=== PATIENT | female | born 1970 | race Caucasian/White ===

== ENCOUNTER → 2017-06-20 14:47 | Outpatient (CLI) | payer SELFPAY ==
--- NOTE | 2017-06-20 14:49 | CT_ITS ---
STUDY: CT ABDOMEN WITH CONTRAST REASON FOR EXAM: Female, 46 years old. Abdominal pain RADIATION DOSAGE (If Supplied By Facility): CTDIvol = ( 19.76 ) mGy, DLP = ( 953.57 ) mGycm TECHNIQUE: Transaxial images were obtained post I.V. administration of 100mL ml of Isovue 300 contrast, and with oral contrast. Sagittal and coronal images were reconstructed. Individualized dose optimization techniques were used for this CT. COMPARISON: None. FINDINGS: The visualized lung bases are unremarkable. The visualized portions of the heart are within normal limits. There is a subcentimeter hypodensity in the right lower the liver which is too small to characterize. The liver is otherwise within normal limits. The spleen, pancreas and adrenal glands are within normal limits. There is a 5 mm nonobstructing stone in the collecting system of the right kidney and a 6 mm nonobstructing stone in the collecting system of the left kidney. There is no hydronephrosis. The visualized bowel demonstrates no evidence of obstruction. There is no abdominal free air, free fluid or lymphadenopathy. The aorta is normal in caliber. There are no destructive osseous lesions. CT/Abdomen WITH IV Contrast IMPRESSION: Bilateral subcentimeter nonobstructing renal collecting system stones. No hydronephrosis. The visualized bowel is within normal limits. No abdominal lymphadenopathy. Electronically Signed: Soham Ba, at 7:09 EDT Tel , Service support ,
== END ==
PROVIDERS: Family Provider Internal Medicine; PCP Internal Medicine; Visit Provider Internal Medicine
DX: R93.5 Abnormal findings on diagnostic imaging of other abdominal regions, including retroperitoneum (principal)
CPT/HCPCS: 74160; Q9967

== ENCOUNTER → 2017-07-21 06:44 | Outpatient (CLI) | payer BC, SELFPAY ==
--- NOTE | 2017-07-21 06:55 | CT_ITS ---
STUDY: CT BRAIN WITH AND WITHOUT CONTRAST REASON FOR EXAM: Female, 46 years old. Hyperprolactinemia RADIATION DOSAGE (If Supplied By Facility): CTDIvol = ( 44.99 ) mGy, DLP = ( 1547.23 ) mGycm TECHNIQUE: Transaxial CT imaging of the brain was performed pre and post contrast administration. The examination was performed with intravenous administration of 50cc ml of Isovue 370 contrast material. Individualized dose optimization techniques were used for this CT. COMPARISON: None. FINDINGS: Normal soft tissue structures. Normal calvarium. Normal size ventricles and extra-axial spaces for the patient's age. Normal white matter tracts of the cerebral hemispheres. Normal basal ganglia and thalami. Normal brainstem. Normal cerebellum. There is sellar enlargement at 1.23 x 0.7 cm with enhancement. This is suggestive of pituitary enlargement and a functioning pituitary adenoma would be consistent with patient's symptoms. An MRI is recommended for more accurate evaluation of the pituitary and of the enhancement pattern. There is no suspicious peripheral enhancing lesion. There is no intracranial hemorrhage. There are no findings of an acute ischemic infarction. Normal visualized paranasal sinuses. CT/Brain/Head W/WO Contrast IMPRESSION: There is CT evidence of enlarged sella region with enhancement which suggests pituitary enlargement and a possible functioning pituitary adenoma. Recommend further evaluation with MRI No acute hemorrhage midline shift or mass effect No suspicious enhancing lesion Electronically Signed: Theodore Robbins MD at 7:51 EDT , Service support ,
== END ==
PROVIDERS: Family Provider Internal Medicine; PCP Internal Medicine; Visit Provider Internal Medicine
DX: E22.1 Hyperprolactinemia (principal)
CPT/HCPCS: 70470

== ENCOUNTER → 2017-08-02 07:56 | Outpatient (CLI) | payer BC, SELFPAY ==
--- NOTE | 2017-08-02 08:30 | MRI_ITS ---
STUDY: MRI BRAIN WITH AND WITHOUT CONTRAST REASON FOR EXAM: Female, 46 years old. Hyperprolactinemia, abnormal hair growth, abnormal CT. TECHNIQUE: Standardized multiplanar fat and water weighted pulse sequences were obtained. 11 ml of Gadavist contrast material was administered intravenously for the contrast portion of the examination. COMPARISON: July 21, 2017 CT of the head FINDINGS: Normal size of the ventricles and extra-axial spaces for the patient's age. There are multiple periventricular and subcortical white matter hyperintensities. Normal bilateral basal ganglia. Normal thalami. There is no extra-axial fluid accumulation. Normal flow voids within the major intracranial circulation suggesting patency by spin echo criteria. Normal venous enhancement. There is no enhancing intra-axial or extra-axial abnormality. Normal midbrain, shaka and medulla. Normal cerebellum. Normal basal cisterns. Normal bilateral temporal bones. Normal bilateral internal auditory canals. No demonstrated orbital abnormality, within the constraints of a routine brain study. Normal visualized paranasal sinuses. Normal calvarium and skull base. Normal visualized soft tissue structures. Normal visualized upper cervical spine. IMPRESSION: No acute intracranial abnormality or masses. Nonspecific white matter hyperintensities. Differential considerations are chronic microvascular, demyelination, post infectious and inflammatory disease. Electronically Signed: No Davila MD at 11:38 EDT Tel , Service support , STUDY: MRI BRAIN WITH AND WITHOUT CONTRAST (ATTENTION PITUITARY GLAND) REASON FOR EXAM: Female, 46 years old. Hyperprolactinemia, abnormal hair growth, abnormal CT. TECHNIQUE: Standardized multiplanar fat and water weighted pulse sequences were obtained. 11 ml of Gadavist contrast material was administered intravenously for the contrast portion of the examination. COMPARISON: None. FINDINGS: There is minimal prominence size of the pituitary gland at 10 mm. Normal enhancement of the pituitary gland, without a demonstrated intrapituitary lesion. Normal infundibular stalk and suprasellar cistern. Normal optic chiasm and hypothalamus. Normal size of the ventricles and extra-axial spaces for the patient's age. Normal white matter tracts of the supratentorial brain. Normal bilateral basal ganglia. Normal thalami. Normal flow voids within the major intracranial circulation suggesting patency by spin echo criteria. Normal venous enhancement. There is no enhancing intra-axial or extra-axial abnormality. There is no extra-axial fluid accumulation. Normal tectal plate and pineal gland. Normal midbrain, shaka and medulla. Normal cerebellum. Normal basal cisterns. Normal bilateral temporal bones. Normal bilateral internal auditory canals. No demonstrated orbital abnormality, within the constraints of a routine brain study. Normal visualized paranasal sinuses. Normal calvarium and skull base. Normal visualized upper cervical spine. Normal visualized soft tissue structures. MRI/Brain W/WO Contrast IMPRESSION: Prominent pituitary gland. No demonstrated intrapituitary lesion. Electronically Signed: No Davila MD at 11:40 EDT Tel , Service support ,
== END ==
PROVIDERS: Family Provider Internal Medicine; PCP Internal Medicine; Visit Provider Internal Medicine
DX: E22.1 Hyperprolactinemia (principal)
CPT/HCPCS: 70553; A9585

== ENCOUNTER 2018-07-27 18:27 | Emergency (ER) | payer BC, SELFPAY ==
[2018-07-27 18:28] VITALS: BP 135/71; PULSE 74; RESP 18; TEMP 36.8; O2SAT 98; BMI 36.5
[2018-07-27 18:48] LABS: Absolute Lymphocyte Count 1.95 X10^3/ul (0.83-4.51); Absolute Neutrophil Count 3.6 X10^3/uL (2.0-7.7); Basophil# 0.01 X10^3/uL; Basophil% 0.2 % (0-1); Eosinophil# 0.13 X10^3/uL; Eosinophils% 2.1 % (0-5); Hematocrit 43.1 % (37-47); Hemoglobin 14.3 g/dl (12.0-15.0); Lymphocyte # 1.95 X10^3/ul (4.0); Lymphocyte % 31.8 % (19-41); Mean Corp Hgb Conc 33.2 g/gl (32-36); Mean Corpuscular Hgb 29.3 pg (27.0-32.0); Mean Corpuscular Volume 88.3 fL (81-99); Mean Platelet Vol. 10.8 fl (6.2-12.0); Monocyte# 0.43 X10^3/uL; Neutrophil # 3.62 X10^3/uL (2.7-7.7); Neutrophil % 58.9 % (47-70); Platelet Count 184 K/mm3 (150-450); RBC Distribution Width CV 12.9 % (11.6-14.6); RBC Distribution Width SD 41.2 fl (35.1-43.9); Red Blood Count 4.88 M/mm3 (4.2-5.4); White Blood Count 6.1 K/mm3 (4.4-11.0)
[2018-07-27 18:49] LABS: POSITIVE COUNT NO; POSITIVE DIFFERENTIAL NO; POSITIVE MORPHOLOGY NO
[2018-07-27 19:00] LABS: Anion Gap 4 (5-15); BUN 14 mg/dL (7-18); BUN/Creat Ratio 17.8 RATIO (10-20); Calcium,Total 8.8 mg/dL (8.5-10.1); Chloride 107 mmol/L (98-107); Creatinine, Serum 0.79 mg/dL (0.55-1.02); EST Glomerular Filtration Rate 84 mL/min (>60); Est Glom Filt Rate - Afr Amer 101 mL/min (>60); Estimated Creatinine Clearance 90.72 ml/min; Glucose 106 mg/dL (74-106); Potassium 3.6 mmol/L (3.5-5.1); Sodium Level 138 mmol/L (136-145)
[2018-07-27 19:19] LABS: Internal QC Validated? YES +Cl - CLEAR BKGD; Pregnancy, Serum, hCG Quali. NEGATIVE Negative
--- NOTE | 2018-07-27 19:50 | CT_ITS ---
STUDY: CT ABDOMEN AND PELVIS WITH CONTRAST REASON FOR EXAM: Female, 47 years old. Upper abdominal pain RADIATION DOSAGE (If Supplied By Facility): CTDIvol = ( 18.56 ) mGy, DLP = ( 1325.05 ) mGycm TECHNIQUE: Transaxial images were obtained from the dome of the diaphragm to the symphysis pubis without oral contrast. 100ML IV/Oral Isovue 300 was administered. Sagittal and coronal images were reconstructed. Individualized dose optimization techniques were used for this CT. COMPARISON: Previous study of 06/20/2017 FINDINGS: The visualized lung bases are unremarkable. The visualized portions of the heart are within normal limits. There is a subcentimeter hypodensity of the posterior right hepatic lobe indeterminate for solid versus cystic structure. This is stable from prior CT of 06/20/2017. Normal gallbladder and extrahepatic biliary system. Normal spleen. Normal pancreas. Normal bilateral adrenal glands. Normal right kidney. There is a nonobstructing 5 mm calculus of the left kidney. Normal visualized stomach. Normal small intestine. Normal colon. The appendix is visualized and appears normal. Normal abdominal aorta. Normal inferior vena cava. Normal retroperitoneum. Normal urinary bladder. The uterus is tilted to the right of midline. There is a 1.7 cm left ovarian cyst. There is a small ventral hernia containing peritoneal fat. There is old compression deformity of L1, appearing similar to the previous study. CT/Abdomen/Pelvis WITH Contrast IMPRESSION: 1. Subcentimeter hypodensity of the posterior right hepatic lobe indeterminate for solid versus cystic structure, stable from the previous study. 2. Nonobstructing 5 mm calculus of the left kidney. 3. 1.7 cm left ovarian cyst. 4. Small ventral hernia containing peritoneal fat. 5. Old compression deformity of L1, stable in the interval. 6. There is no evidence of free intra-abdominal or intrapelvic air, fluid, or inflammatory process. Electronically Signed: Raj Watts MD at 21:54 EDT , Service support ,
[2018-07-27 20:06] LABS: Bacteria 0 SEEN /hpf (None Seen); Mucous, Urine 0 SEEN /hpf (<or=2+)
--- NOTE | 2018-07-27 20:12 | ED.VIS.GEN ---
History of Present Illness Chief Complaint: Abd Pain Informant: Patient Onset: Today Context: Sudden Onset - while getting a shower Timing: Continuous Quality: pain Location: supraumbilical Current Severity: Severe Maximum Severity: Severe Worsened by: walking, sitting up Relieved by: remaining still Associated Symptoms: none. no n/v/d. had BM this AM, normal. Narrative: Patient states she has had this discomfort off and on for years but never this severe or persistent. Has never had it evaluated medically. Has had no prior abdominal surgeries. - Past Medical History (1) Hypothyroid Status: Chronic Past Medical History - Allergies and Home Meds Allergies/Adverse Reactions: Allergies No Known Allergies Allergy (Verified 07/27/18 18:29) Primary Care Physician: Ana Gaines MD [STAFF PHYSICIAN] - (call for appt) Lives: Alone Smoking Status: Never smoker Drugs: None Review of Systems General: Denies: Chills, Fever, Sweats Eyes: Denies: Visual changes - bilaterally, Diplopia ENT: Denies: Rhinorrhea, Sore throat Cardiovascular: Denies: Chest pain, Palpitations Respiratory: Denies: Dyspnea, Cough, Dyspnea on exertion Gastrointestinal: Reports: Abdominal pain. Denies: Nausea, Vomiting, Diarrhea, Constipation, Melena, Hematochezia Genitourinary: Denies: Dysuria, Hematuria, Frequency Musculoskeletal: Denies: Back pain, Extremity Pain Skin: Denies: Rash, Wounds Neurological: Denies: Headache, Weakness, Numbness Physical Exam Vital Signs/Narrative: Vital Signs Temp Pulse Resp BP Pulse Ox 07/27/18 18:28 98.3 F 74 18 135/71 H 98 Inital Vital Signs reviewed: Yes General: Well nourished, Well developed, Obese, No Acute Distress Head: Normocephalic, Atraumatic Eyes: Perrl, EOMI ENT: Moist mucous membranes, No rhinorrhea Neck: Supple, Nontender Cardiovascular: Regular rate, Regular rhythm, No murmurs Respiratory: No distress, CTA bilaterally, Chest nontender Abdomen: Soft, Nondistended, Normal bowel sounds, Tender - supraumbilical, at ventral hernia, Ventral hernia - nonreducible Back: Nontender, Normal Inspection. Negative for: CVA tenderness Extremities: Nontender, No edema Skin: Normal color, No rash, No Trauma Neurological: Alert, Oriented x3, Cranial nerves II-XII grossly intact, Normal Strength, Normal Sensation Psychological: Normal affect, Normal Mood Diagnostic/Tx/Re-eval Laboratory Tests 07/27/18 07/27/18 07/27/18 Range/Units 19:50 18:40 18:40 WBC (4.4-11.0) K/mm3 RBC (4.2-5.4) M/mm3 Hgb (12.0-15.0) g/dl Hct (37-47) % MCV (81-99) fL MCH (27.0-32.0) pg MCHC (32-36) g/gl RDW (11.6-14.6) % RDW Differential (35.1-43.9) fl Plt Count (150-450) K/mm3 MPV (6.2-12.0) fl Immature Gran % (Auto) (0.0-0.9) % Neut % (Auto) (47-70) % Lymph % (Auto) (19-41) % Bonner % (Auto) (0-10) % Eos % (Auto) (0-5) % Baso % (Auto) (0-1) % Absolute Neuts (auto) (2.0-7.7) X10^3/uL Absolute Lymphs (auto) (0.83-4.51) X10^3/ul Total Counted Sodium 138 (136-145) mmol/L Potassium 3.6 (3.5-5.1) mmol/L Chloride 107 (98-107) mmol/L Carbon Dioxide 27.0 (21.0-32.0) mmol/L Anion Gap 4 L (5-15) BUN 14 (7-18) mg/dL Creatinine 0.79 (0.55-1.02) mg/dL Estim Creat Clear Calc 90.72 ml/min Est GFR (MDRD) Af Amer 101 (>60) mL/min Est GFR (MDRD) Non-Af 84 (>60) mL/min BUN/Creatinine Ratio 17.8 (10-20) RATIO Glucose 106 (74-106) mg/dL Calcium 8.8 (8.5-10.1) mg/dL Serum , Qual NEGATIVE Negative Urine Color Yellow (Yellow) Urine Clarity Sl. Cloudy (Clear) Urine pH 7.0 (5.0 - 8.0) Ur Specific [place] 1.015 (1.002-1.030) Urine Protein Negative (Negative) mg/dl Urine Glucose (UA) Normal (Normal) mg/dl Urine Ketones Negative (Negative) mg/dl Urine Occult Blood 25 H (Negative) /ul Urine Nitrite Negative (Negative) Urine Bilirubin Negative (Negative) mg/dL Urine Urobilinogen Normal (Normal) mg/dl Ur Leukocyte Esterase 100 H (Negative) /ul Urine RBC 0-5 SEEN (0-5) /hpf Urine WBC 5-10 SEEN (0-5) /hpf Ur Squamous Epith Cells 5-10 SEEN (5-10) /hpf Urine Bacteria 0 SEEN (None Seen) /hpf Urine Mucus 0 SEEN (<or=2+) /hpf 07/27/18 Range/Units 18:40 WBC 6.1 (4.4-11.0) K/mm3 RBC 4.88 (4.2-5.4) M/mm3 Hgb 14.3 (12.0-15.0) g/dl Hct 43.1 (37-47) % MCV 88.3 (81-99) fL MCH 29.3 (27.0-32.0) pg MCHC 33.2 (32-36) g/gl RDW 12.9 (11.6-14.6) % RDW Differential 41.2 (35.1-43.9) fl Plt Count 184 (150-450) K/mm3 MPV 10.8 (6.2-12.0) fl Immature Gran % (Auto) 0.000 (0.0-0.9) % Neut % (Auto) 58.9 (47-70) % Lymph % (Auto) 31.8 (19-41) % Bonner % (Auto) 7.0 (0-10) % Eos % (Auto) 2.1 (0-5) % Baso % (Auto) 0.2 (0-1) % Absolute Neuts (auto) 3.6 (2.0-7.7) X10^3/uL Absolute Lymphs (auto) 1.95 (0.83-4.51) X10^3/ul Total Counted Not Reportable Sodium (136-145) mmol/L Potassium (3.5-5.1) mmol/L Chloride (98-107) mmol/L Carbon Dioxide (21.0-32.0) mmol/L Anion Gap (5-15) BUN (7-18) mg/dL Creatinine (0.55-1.02) mg/dL Estim Creat Clear Calc ml/min Est GFR (MDRD) Af Amer (>60) mL/min Est GFR (MDRD) Non-Af (>60) mL/min BUN/Creatinine Ratio (10-20) RATIO Glucose (74-106) mg/dL Calcium (8.5-10.1) mg/dL Serum , Qual Negative Urine Color (Yellow) Urine Clarity (Clear) Urine pH (5.0 - 8.0) Ur Specific [place] (1.002-1.030) Urine Protein (Negative) mg/dl Urine Glucose (UA) (Normal) mg/dl Urine Ketones (Negative) mg/dl Urine Occult Blood (Negative) /ul Urine Nitrite (Negative) Urine Bilirubin (Negative) mg/dL Urine Urobilinogen (Normal) mg/dl Ur Leukocyte Esterase (Negative) /ul Urine RBC (0-5) /hpf Urine WBC (0-5) /hpf Ur Squamous Epith Cells (5-10) /hpf Urine Bacteria (None Seen) /hpf Urine Mucus (<or=2+) /hpf Clinical Impression(s) from Imaging Studies Abdomen/Pelvis CT 07/27/18 19:50 IMPRESSION: 1. Subcentimeter hypodensity of the posterior right hepatic lobe indeterminate for solid versus cystic structure, stable from the previous study. 2. Nonobstructing 5 mm calculus of the left kidney. 3. 1.7 cm left ovarian cyst. 4. Small ventral hernia containing peritoneal fat. 5. Old compression deformity of L1, stable in the interval. 6. There is no evidence of free intra-abdominal or intrapelvic air, fluid, or inflammatory process. Electronically Signed: Raj Watts MD at 21:54 EDT , Service support , - Medical Decision Making Labs are normal, urinalysis does show some pyuria but she has no symptoms so I sent that for a culture. Her CT shows a fat-containing ventral hernia with no bowel in it. She was given some pain medication, she feels like it went back in and feels much better. I feel she can be safely discharged home with a referral to surgery as an outpatient if she wants to seek evaluation for elective repair of this given its discomfort. ED Disposition - Plan for ED Patient: Disposition: Home or Assisted Living Diagnosis: Ventral hernia without obstruction or gangrene Instructions: What Is a Hernia? Referrals: Ana Gaines MD [STAFF PHYSICIAN] - (call for appt)
[2018-07-27 20:20] LABS: Color, Urine Yellow (Yellow); Glucose, Dipstick Normal (Normal); Ketone-Dipstick Negative (Negative); Leukocyte Esterase-Dipstick 100 /ul (Negative); Nitrite-Dipstick Negative (Negative); Occult Blood-Urine 25 /ul (Negative); Protein-Dipstick Negative (Negative); Specific Gravity, Urine 1.015 (1.002-1.030); Urine Bilirubin Dipstick Negative (Negative); Urine Clarity Sl. Cloudy (Clear); Urine Urobilinogen Normal (Normal)
[2018-07-27 20:29] LABS: Red Blood Cells-Urine 0-5 SEEN /hpf (0-5); Squamous Epithelial Cells - UA 5-10 SEEN /hpf (5-10); White Blood Cells 5-10 SEEN /hpf (0-5)
[2018-07-27] MEDS: Morphine 4 MG/ML Syringe IV (20:30)
[2018-07-27 20:56] VITALS: RESP 16
[2018-07-27 22:15] VITALS: RESP 16
[2018-07-27 22:24] VITALS: BP 136/82; PULSE 69; RESP 18; O2SAT 97
--- NOTE | 2018-07-27 22:25 | ED.RN ---
REVIEWED D/C INSTRUCTIONS, FOLLOW UP CARE, AND S/S THAT WOULD WARRANT A RETURN TO THE ED WITH PT. PT VERBALIZED AN UNDERSTANDING AND DENIES FURTHER QUESTIONS FOR THIS RN. PT SKIN P/W/D, RESP EVEN AND UNLABORED, PT A&O X 3, NO DISTRESS NOTED. PT AMBULATED OUT OF ED, GAIT STEADY.
== END 2018-07-27 22:34 | disposition home or self-care (01) ==
PROVIDERS: Emergency Provider Emergency Medicine; Family Provider Internal Medicine; PCP Internal Medicine
DX: K43.9 Ventral hernia without obstruction or gangrene (principal); N39.0 Urinary tract infection, site not specified; N20.0 Calculus of kidney; N83.202 Unspecified ovarian cyst, left side; E66.9 Obesity, unspecified; E03.9 Hypothyroidism, unspecified; Z79.899 Other long term (current) drug therapy
CPT/HCPCS: 74177; 80048; 81001; 84703; 85025; 87086; 87088; 96361; 96374; 99283; J7030; Q9967; A4216

== ENCOUNTER 2018-08-19 07:21 | Day surgery (SDC) | payer BC, SELFPAY ==
[2018-07-29 08:45] VITALS: BMI 36.5
--- NOTE | 2018-07-29 09:27 | HP_ITS ---
Intake Vital Signs 07/29/18 Body Mass Index (BMI) 36.5 07/29/18 Height 5 ft 8 in 07/29/18 Weight: 240 lb 07/29/18 Body Mass Index (BMI) 36.5 07/29/18 Blood Pressure 124/79 H 07/29/18 Blood Pressure Location Rt brachial 07/29/18 Blood Pressure Position Sitting 07/29/18 Respiratory Rate 18 07/29/18 Pulse Rate 82 07/29/18 Pulse Source Monitor 07/29/18 Temperature 98.3 F 07/29/18 Temperature Source Oral 07/29/18 Pulse Ox 96 07/29/18 Oxygen Delivery Method room air Intake Visit Reasons: Ventral Hernia [facility] ER 07/27 CT Social Insurance Analyst Required: No Is patient in pain?: No Allergies No Known Allergies Allergy (Verified 07/29/18 08:45) Medications Levothyroxine Sodium [Synthroid] 100 mcg PO DAILY 07/27/18 [History Confirmed 07/29/18] [facility] Medical History Abdominal pain (Acute) Acid reflux (Acute) Kidney stones (Acute) Thyroid disease (Acute) Surgical History History of excision of pilonidal cyst (Acute) History of lithotripsy (Acute) Family History Mother Arthritis Hypertension High cholesterol Brother Cancer Diabetes Social History Smoking Status: Never smoker alcohol intake: never substance use type: does not use HPI HPI HPI: DENYS RODRIGUEZ, is a 47 F who presents to the office today for HPI HPI Surgical H&P: Yes HPI: DENYS RODRIGUEZ, is a 47 F who presents to the office today for ventral hernia. Patient states that she went to the ER on Friday due to 10 out of 10 abdominal pain; however the pain did improve after laying down some pain meds. Patient currently states her pain is a 1/10 denies any nausea vomiting now or on Friday. Patient CT abdomen pelvis did show supraumbilical ventral hernia with intra- abdominal fat in the hernia. Patient's previous CAT scans from 2018 in 2010 also show this hernia. Patient denies having any surgery at this site. Patient states she has bowel movements daily but she also has occasional blood in her stool every couple months it could be bright red or dark or red denies any tarry stools or clots. Patient denies any family history of colon cancer denies any previous colonoscopy. Patient states that she does have reflux but only gets it about once a year. ROS General General: No weight change, fatigue, colon cancer, breast cancer or weakness HEENT HEENT: No difficulty swallowing, eye injury, eye surgery, swollen glands or hoarseness Endo Endocrine: Yes thyroid disease; no diabetes mellitus, thyroid cancer, Hair loss, heat intolerance or cold intolerance Skin Skin: No rash or changing moles Breast Breast: No left breast lump, right breast lump, nipple discharge, breast pain, abnormal mammogram, abnormal US or breast enlargement Musc Musculoskeletal: No back problems, arthritis, rheumatoid arthritis, gout or joint pain Cardio Cardiovascular: No murmur, pacemaker, heart disease, atrial fibrillation, high blood pressure, heart attack, heart stent, palpitations, shortness of breat with exertion or chest pain Psych Psychiatric: No depression, anxiety or hearing voices Resp Respiratory: No shortness of breath, No sleep apnea, No cough, No COPD, No asthma, No emphysema, No wheezing Gastro Gastrointestinal: Yes abdominal pain, No nausea or vomiting, No diarrhea, No constipation, No blood in stool, Yes acid reflux, No hemorrhoids, No ulcers, No gallbladder problem, No black,tarry stools Franky Hematologic: No blood thinners, No blood disorders, No bleeding, No anemia, No blood clots Neuro Neurologic: No system reviewed and no additional complaints, except as docu, No as per HPI, No abnormal walking, No abnormal hearing, No abnormal movements, No abnormal speech, No behavioral changes, No burning sensations, No confusion, No seizure-like activity, No unsteadiness, No dizziness, No localized weakness, No frequent falls, No headache(s), No lack of coordination, No loss of vision, No memory loss, No numbness, No other visual disturbances, No radiating pain, No restless legs, No sensory deficit, No fainting, No tingling, No tremor(s), No weakness, No other Exam Const General: cooperative, comfortable, no acute distress Chest Breast Palpation: No nipple discharge Resp Effort & Inspection: normal respiratory effort Cardio Rate: regular rate Heart Sounds: no murmurs GI Inspection: non-distended, obesity Palpation: soft, no guarding, hernia, nontender Other: Supraumbilical fullness, unable to discretely feel the hernia defect seen on CT is likely the fullness is the incarcerated intra-abdominal fat Assessment & Plan Problems 1. Ventral hernia without obstruction or gangrene K43.9 2. BRBPR (bright red blood per rectum) K62.5 Plan Reviewed patient's CAT scan with her involving the ventral hernia with incarcerated fat. Patient states she has minimal pain currently. Denies any nausea or vomiting. Discuss open repair with mesh. Discussed the procedure as well as risks including but not limited to bleeding, infection, injury to another organ (small bowel, colon, etc.), seroma, and anesthesia. Patient had no further questions this time. We will plan to complete a colonoscopy before scheduling her open ventral hernia repair with mesh. Patient has plan to return to update her H&P prior to scheduling the ventral hernia repair with mesh, as it needs to be updated 30 days before surgery. I have discussed the above with the patient. I have offered the patient colonoscopy for evaluation. I have explained the risks/benefits of the procedure and described the procedure. I have discussed the risks with the patient, including but not limited to: infection, bleeding, perforation of the GI tract requiring emergency surgery, inability to complete the procedure, injury to any internal organs, complications of anesthesia, etc. - the patient understands and agrees to proceed. I have answered all the patient's questions to the patient's satisfaction and the patient has no further questions. The patient has been given instructions for the colon cleansing preparation. 1 day of clears, MiraLAX Dulcolax split prep Ana Gaines M.D. Pager: [phone] [facility] [address] [place] [address], [address] [place] [address] Office: [phone] Plan Detail Follow Up We will schedule colonoscopy Coding Level of Care Code Off vis,new,level 3 Diagnoses Ventral hernia without obstruction or gangrene K43.9 BRBPR (bright red blood per rectum) K62.5 07/29/18 0927 <Electronically signed by Ana Gaines MD> Date Ana Gaines MD I have examined the patient the following changes are noted: Patient states she has not been having issues with her ventral hernia at that but may be waiting till March depending on how she is doing until then. Did discuss with patient that she does have increased pain at the site she may need to go to the ER which she was agreeable to. Patient denies any further rectal bleeding since appointment. On exam still has an incarcerated ventral hernia, abdomen soft, nontender, non-distended, no peritoneal signs.
[2018-08-19 07:39] VITALS: BP 152/100; PULSE 80; RESP 16; TEMP 36.8; O2SAT 97; BMI 35.9
--- NOTE | 2018-08-19 08:45 | COLBX_PTH ---
PATIENT: DENYS RODRIGUEZ LOC: EN U#:[id number] AGE/SX: 47/F ROOM: RE08/19/[address]: Dr. Ana Gaines MD : 1970 BED: DIS: 08/19/2018 SPEC #: [id number] RECD: 08/19/18 10:17 STATUS: ANN RENerissa #: [id number] MANDI: 08/19/18 08:[address]: Ana Gaines DEPT: SURGICAL PATHOLOGY RECD BY: Rodrigo Costa ENTERED: 08/19/18 10:56 SP TYPE: COLON BX OTHR DR: Dr. Lupe Kohler DO Tissues: A - Ascending colon B - Transverse colon Procedures: Surgery Specimen Level IV HEADER OPERATION: Colonoscopy (MAC) PRE-OP DIAGNOSIS: Bright red blood per rectum TISSUE SUBMITTED: A - Biopsy of polyp proximal ascending, B - Polyp transverse colon MICROSCOPIC DIAGNOSIS A. Proximal ascending colon polyp, biopsy: One fragment of tubular adenoma. B. Transverse colon polyp, biopsy: Tubular adenoma. AM:tierra 08/20/18 MICROSCOPIC DESCRIPTION Slides are reviewed. GROSS DESCRIPTION A - Received in fixative is one container labeled with the patient's name and designated biopsy of polyp proximal ascending. The specimen consists of four irregular fragments of nieto-pink soft tissue that in aggregate measure 0.4 x 0.2 x 0.1 cm. The specimen is totally submitted in one cassette. B - Received in fixative is one container labeled with the patient's name and designated polyp transverse colon. The specimen consists of five irregular fragments of reddish-pink soft tissue that in aggregate measure 0.4 x 0.3 x 0.2 cm. The specimen is totally submitted in one cassette. / CE:tierra 08/19/18 TC:5 [facility]: [id number] x2
[2018-08-19 09:22] VITALS: BP 114/102; BP 152/100; PULSE 84; RESP 16; TEMP 37.3; O2SAT 98
--- NOTE | 2018-08-19 09:23 | OP.ENDO_ITS ---
08/19/2018 Lupe Kohler [address] [facility] [place] [address] Re : Colonoscopy procedure for Kassie Silver Dear Dr. Kohler This procedure was performed on Sunday, August 19, 2018. My impressions and recommendations are as follows: Impressions : - Hemorrhoids found on perianal exam. - Diverticulosis in the ascending colon. - One less than 5 mm polyp in the proximal ascending colon, removed with a cold biopsy forceps. Resected and retrieved. - One 5 mm polyp in the transverse colon, removed piecemeal using a cold biopsy forceps. Resected and retrieved. - The examination was otherwise normal on direct and retroflexion views. Recommendations : - Discharge patient to home. - High fiber diet. - Continue present medications. - Await pathology results. - Repeat colonoscopy in 1 year for surveillance after piecemeal polypectomy. My findings are described in the full procedure note, which is enclosed. If I can be of further assistance, please feel free to contact me at Doctor phone number(s): , Work: . Sincerely, MD Ana Malik MD 08/19/2018 9:23:01 AM This report has been signed electronically.
[2018-08-19 09:27] VITALS: BP 123/75; BP 152/100; PULSE 85; RESP 16; O2SAT 98
[2018-08-19 09:32] VITALS: BP 123/80; BP 152/100; PULSE 79; RESP 16; O2SAT 99
[2018-08-19 09:37] VITALS: BP 130/85; BP 152/100; PULSE 82; RESP 17; TEMP 36.5; O2SAT 99
[2018-08-19 10:20] VITALS: BP 152/100
== END 2018-08-19 10:21 | disposition home or self-care (01) ==
LOC: EN 07:21 → AC 07:23
PROVIDERS: Family Provider Internal Medicine; PCP Internal Medicine; Referring Provider Surgery; Visit Provider Surgery
PROC: 0DJD8ZZ Inspection of Lower Intestinal Tract, Via Natural or Artificial Opening Endoscopic (ICD-10-PCS; CPT 45378; principal; 2018-08-19 08:40)
DX: D12.2 Benign neoplasm of ascending colon (principal); D12.3 Benign neoplasm of transverse colon; K64.9 Unspecified hemorrhoids; K57.30 Diverticulosis of large intestine without perforation or abscess without bleeding; K43.6 Other and unspecified ventral hernia with obstruction, without gangrene; E06.9 Thyroiditis, unspecified; Z87.442 Personal history of urinary calculi; Z79.899 Other long term (current) drug therapy
CPT/HCPCS: 45380; 88305; J7120

== ENCOUNTER → 2018-09-01 | Outpatient (CLI) | payer BC, SELFPAY ==
[2018-07-29 08:45] VITALS: BMI 36.5
[2018-08-19 07:39] VITALS: BMI 35.9
--- NOTE | 2018-09-01 12:51 | MRI_ITS ---
STUDY: MRI ABDOMEN WITH AND WITHOUT CONTRAST REASON FOR EXAM: Female, 47 years old. Liver lesion on CT. TECHNIQUE: Standardized fat and water weighted pulse sequences were obtained in all 3 orthogonal planes post contrast administration. 10 IV Dotarem was administered for the contrast portion of the examination. COMPARISON: CT dated 07/27/2018. FINDINGS: This study is limited by patient motion. The visualized lung bases are unremarkable. The visualized portions of the heart are within normal limits. There is a subcentimeter T2 hyperintense lesion posteriorly in the right lobe of the liver (image 15 series 6) which corresponds to the abnormality on the recent CT. This does not enhance following contrast administration and is consistent with a cyst. There are no additional hepatic lesions. There are multiple gallstones noted in the gallbladder. There is no intrahepatic or extrahepatic biliary duct dilatation. Normal spleen. Normal pancreas. Normal bilateral adrenal glands. Normal right kidney. Normal left kidney. The visualized bowel demonstrates no evidence of obstruction. Normal abdominal aorta. Normal inferior vena cava. Normal retroperitoneum. MRI/MRI Abd WITH and W/O Contrast IMPRESSION: Subcentimeter cyst in the right lobe of the liver which corresponds to the abnormality on the recent CT. No additional hepatic lesions. Gallstones. Electronically Signed: Soham Ba, at 18:48 EDT Tel , Service support ,
== END | disposition home or self-care (01) ==
LOC: MRI 12:44
PROVIDERS: Family Provider Internal Medicine; PCP Internal Medicine; Referring Provider Internal Medicine; Visit Provider Internal Medicine
DX: K76.9 Liver disease, unspecified (principal)
CPT/HCPCS: 74183; A9575

== ENCOUNTER 2018-09-09 10:00 | Day surgery (SDC) | payer BC, SELFPAY ==
--- NOTE | 2018-07-29 09:27 | HP_ITS ---
Intake Vital Signs 07/29/18 Body Mass Index (BMI) 36.5 07/29/18 Height 5 ft 8 in 07/29/18 Weight: 240 lb 07/29/18 Body Mass Index (BMI) 36.5 07/29/18 Blood Pressure 124/79 H 07/29/18 Blood Pressure Location Rt brachial 07/29/18 Blood Pressure Position Sitting 07/29/18 Respiratory Rate 18 07/29/18 Pulse Rate 82 07/29/18 Pulse Source Monitor 07/29/18 Temperature 98.3 F 07/29/18 Temperature Source Oral 07/29/18 Pulse Ox 96 07/29/18 Oxygen Delivery Method room air Intake Visit Reasons: Ventral Hernia [facility] ER 07/27 CT [employer] Required: No Is patient in pain?: No Allergies No Known Allergies Allergy (Verified 07/29/18 08:45) Medications Levothyroxine Sodium [Synthroid] 100 mcg PO DAILY 07/27/18 [History Confirmed 07/29/18] [facility] Medical History Abdominal pain (Acute) Acid reflux (Acute) Kidney stones (Acute) Thyroid disease (Acute) Surgical History History of excision of pilonidal cyst (Acute) History of lithotripsy (Acute) Family History Mother Arthritis Hypertension High cholesterol Brother Cancer Diabetes Social History Smoking Status: Never smoker alcohol intake: never substance use type: does not use HPI HPI HPI: DENYS RODRIGUEZ, is a 47 F who presents to the office today for HPI HPI Surgical H&P: Yes HPI: DENYS RODRIGUEZ, is a 47 F who presents to the office today for ventral hernia. Patient states that she went to the ER on Friday due to 10 out of 10 abdominal pain; however the pain did improve after laying down some pain meds. Patient currently states her pain is a 1/10 denies any nausea vomiting now or on Friday. Patient CT abdomen pelvis did show supraumbilical ventral hernia with intra- abdominal fat in the hernia. Patient's previous CAT scans from 2018 in 2010 also show this hernia. Patient denies having any surgery at this site. Patient states she has bowel movements daily but she also has occasional blood in her stool every couple months it could be bright red or dark or red denies any tarry stools or clots. Patient denies any family history of colon cancer denies any previous colonoscopy. Patient states that she does have reflux but only gets it about once a year. ROS General General: No weight change, fatigue, colon cancer, breast cancer or weakness HEENT HEENT: No difficulty swallowing, eye injury, eye surgery, swollen glands or hoarseness Endo Endocrine: Yes thyroid disease; no diabetes mellitus, thyroid cancer, Hair loss, heat intolerance or cold intolerance Skin Skin: No rash or changing moles Breast Breast: No left breast lump, right breast lump, nipple discharge, breast pain, abnormal mammogram, abnormal US or breast enlargement Musc Musculoskeletal: No back problems, arthritis, rheumatoid arthritis, gout or joint pain Cardio Cardiovascular: No murmur, pacemaker, heart disease, atrial fibrillation, high blood pressure, heart attack, heart stent, palpitations, shortness of breat with exertion or chest pain Psych Psychiatric: No depression, anxiety or hearing voices Resp Respiratory: No shortness of breath, No sleep apnea, No cough, No COPD, No asthma, No emphysema, No wheezing Gastro Gastrointestinal: Yes abdominal pain, No nausea or vomiting, No diarrhea, No constipation, No blood in stool, Yes acid reflux, No hemorrhoids, No ulcers, No gallbladder problem, No black,tarry stools Franky Hematologic: No blood thinners, No blood disorders, No bleeding, No anemia, No blood clots Neuro Neurologic: No system reviewed and no additional complaints, except as docu, No as per HPI, No abnormal walking, No abnormal hearing, No abnormal movements, No abnormal speech, No behavioral changes, No burning sensations, No confusion, No seizure-like activity, No unsteadiness, No dizziness, No localized weakness, No frequent falls, No headache(s), No lack of coordination, No loss of vision, No memory loss, No numbness, No other visual disturbances, No radiating pain, No restless legs, No sensory deficit, No fainting, No tingling, No tremor(s), No weakness, No other Exam Const General: cooperative, comfortable, no acute distress Chest Breast Palpation: No nipple discharge Resp Effort & Inspection: normal respiratory effort Cardio Rate: regular rate Heart Sounds: no murmurs GI Inspection: non-distended, obesity Palpation: soft, no guarding, hernia, nontender Other: Supraumbilical fullness, unable to discretely feel the hernia defect seen on CT is likely the fullness is the incarcerated intra-abdominal fat Assessment & Plan Problems 1. Ventral hernia without obstruction or gangrene K43.9 2. BRBPR (bright red blood per rectum) K62.5 Plan Reviewed patient's CAT scan with her involving the ventral hernia with incarcerated fat. Patient states she has minimal pain currently. Denies any nausea or vomiting. Discuss open repair with mesh. Discussed the procedure as well as risks including but not limited to bleeding, infection, injury to another organ (small bowel, colon, etc.), seroma, and anesthesia. Patient had no further questions this time. We will plan to complete a colonoscopy before scheduling her open ventral hernia repair with mesh. Patient has plan to return to update her H&P prior to scheduling the ventral hernia repair with mesh, as it needs to be updated 30 days before surgery. I have discussed the above with the patient. I have offered the patient colonoscopy for evaluation. I have explained the risks/benefits of the procedure and described the procedure. I have discussed the risks with the patient, including but not limited to: infection, bleeding, perforation of the GI tract requiring emergency surgery, inability to complete the procedure, injury to any internal organs, complications of anesthesia, etc. - the patient understands and agrees to proceed. I have answered all the patient's questions to the patient's satisfaction and the patient has no further questions. The patient has been given instructions for the colon cleansing preparation. 1 day of clears, MiraLAX Dulcolax split prep Ana Gaines M.D. Pager: [phone] [facility] [address] [place] [address], [address] [place] [address] Office: [phone] Plan Detail Follow Up We will schedule colonoscopy Coding Level of Care Code Off vis,new,level 3 Diagnoses Ventral hernia without obstruction or gangrene K43.9 BRBPR (bright red blood per rectum) K62.5 07/29/18 0927 <Electronically signed by Ana Gaines MD> Date Ana Gaines MD
[2018-09-09] VITALS (9 sets, daily range): BP systolic 101–127; BP diastolic 61–80; PULSE 50–79; RESP 16; TEMP 36.2–36.7; O2SAT 91–100; BMI 35.4
[2018-09-09 10:30] LABS: Internal QC Validated? YES +Cl - CLEAR BKGD; Pregnancy, Urine Negative Negative
--- NOTE | 2018-09-09 11:18 | PCM.HP.STD ---
History of Present Illness Date of Admission: 09/09/18 The patient is a 47 year old F presents due to ventral hernia. For ventral hernia repair with mesh. Patient's had this ventral hernia for years. Several months ago she did have intense pain and came to the ER which CT abdomen pelvis did show the ventral hernia intra-abdominal fat through the hernia. Patient states since the ER she has not had any issues with the hernia. She did have a colonoscopy done which showed 2 tubular adenomas due to having some blood in her stool previously. Patient states currently she is doing well denies any pain nausea or vomiting. Past Medical History Past Medical History (Chronic Problems): Chronic Problems (Last Updated 07/29/18 @ 08:43 by Radha Lai) Hypothyroid (Chronic) Medical History: Medical History (Last Updated 07/29/18 @ 08:43 by Radha Lai) Abdominal pain R10.9 Acid reflux K21.9 Kidney stones N20.0 Thyroid disease E07.9 Allergies hydrocodone [From [place]] Adverse Reaction (Verified 09/02/18 10:50) Nausea/Vom/Diarrhea Home Medications: Ambulatory Orders Medication Instructions Recorded Levothyroxine Sodium [Synthroid] 100 mcg PO DAILY 07/27/18 Cholecalciferol (Vitamin D3) 2,000 unit PO DAILY 08/14/18 [Vitamin D3] Surgical History: Surgical History (Last Updated 07/29/18 @ 08:42 by Radha Lai) History of excision of pilonidal cyst Z98.890 History of lithotripsy Z98.890 Smoking Status: Never smoker Tobacco Use: Non-smoker Review of Systems Constitutional: Denies: Anorexia, Fever Eyes: Denies: Blurred vision Cardiovascular: Denies: Chest Pain Respiratory: Denies: Cough Gastrointestinal: Denies: Abdominal Pain, Nausea, Vomiting Genitourinary: Denies: Dysuria Neurological: Denies: Balance problems Psychiatric: Denies: Depression Hematologic/ Lymphatic: Denies: Easy Bleeding VTE Information - Inpt Only VTE Present on Admission: Yes VTE Mechan Device Prophylaxis: SCD's VTE Pharm Prophylaxis ordered?: No Reason prophylaxis not ordered:: Medical Contraindication - Surgery - Physical Exam General: Alert, Oriented x3, Cooperative, No apparent distress HEENT: Atraumatic Lungs: Normal air movement Cardiovascular: Regular rate Abdomen: Soft, Non-Distended, Tender - Minimal tenderness palpation upon palpating the ventral hernia, Hernia - Ventral hernia on exam, incarcerated, minimal tenderness palpation Extremities: No clubbing, No cyanosis, No edema Skin: No rashes Neurological: Cranial nerves II-XII grossly intact Psych/Mental Status: Normal Affect Vital Signs Temp Pulse Resp BP Pulse Ox 97.1 F L 73 16 127/80 H 100 09/09/18 10:21 09/09/18 10:21 09/09/18 10:21 09/09/18 10:21 09/09/18 10:21 Oxygen Delivery Method Room Air Weight: 232 lb 9.403 oz Body Mass Index (BMI) 35.4 Laboratory Tests Past 24 Hrs 09/09/18 10:20 Urine Test Negative Assessment/Plan 47-year-old female with ventral hernia, incarcerated Discussed open repair with mesh. Discussed the procedure as well as risks including but not limited to bleeding, infection, injury to another organ (small bowel, colon, etc.), seroma, recurrent hernia, and anesthesia. Patient had no further questions this time and all of her questions have been answered. Ana Gaines M.D. Pager: [phone] [facility] [address] [place] [address], [address] [place] [address] Office: [phone]
[2018-09-09] MEDS: Cefazolin 2 GM in 0.9% Normal Saline 100 ML IV (11:43)
--- NOTE | 2018-09-09 12:48 | OP.PCM_ITS ---
Report of Operation Date of Procedure: 09/09/18 Pre-Operative Diagnosis: Incarcerated ventral hernia Post-Operative Diagnosis: Same Surgery/Procedure Performed:: open incarcerated ventral hernia repair with mesh forest nursery supervisor: Gavin De Jesus Type of Anesthesia:: General/Supplemental Anesthesiologist: Gordo Garduno Special Medications: Ancef 2 g IV x1 Specimen's removed: None Estimated Blood Loss (mL): < 10 cc Fluids Replaced: 700 cc Description of Procedure: Patient was brought to operative room placed upon the operative table. Timeout was completed verifying correct patient, procedure, site, positioning, special, prior to beginning procedure. General anesthesia was induced. Abdomen was prepped draped in usual sterile fashion. Preoperatively the ventral hernia location was identified with use of ultrasound. Incision was made Supraumbilically in the midline at the location of the hernia with a 10 blade scalpel. This was deepened with electrocautery. The hernia was identified. Due to the large size of the incarcerated intra-abdominal fat/omentum the hernia defect at the fascia had to be enlarged slightly with Metzenbaum scissors. The intra-abdominal fat/omentum was able to be reduced back into the abdomen. The defect was noted to be 2 cm x 1.8 cm. The underside of the fascia was cleared from adhesions to allow the mesh to lay flat. Ventralex ST hernia patch lot [id number] reference [id number] Medium [place] patch was used and was confirmed to be laying flat. This was secured to the fascia at the tails laterally with 0 Nurolon and superior-inferior with [id number] 0 Nurolon sutures. The hernia defect was also closed with a [id number] 0 Nurolon suture. Wound was irrigated with saline. Hemostasis was assured. Wound was closed with 3-0 Vicryl subdermal sutures and a running suture of 4-0 Monocryl was used to close the skin. Also dressed with Steri-Strips, Telfa and OpSite. Patient was extubated. Patient tolerated procedure well was taken to the postanesthesia care unit in stable condition. Grafts/Implants Used: Ventralex ST hernia patch lot [id number] reference [id number] Medium Cir. patch - Complications none
[2018-09-09] MEDS: Bupivacaine Mpf 0.5% 30 ML VIAL (12:53)
--- NOTE | 2018-09-09 12:55 | PCM.DC.GS ---
Discharge Diet: Light diet - advance as tolerated Discharge Activity: May not drive while taking narcotic pain medications. Lifting Restrictions: no lifting >20 lb x 3 wk, no strenous exercise for 6 wks Additional Activity Instructions:: abd binder for comfort only Call your doctor if your incision/area has: Continuous Slow Oozing, Sudden Increased Bleeding, Increased Pain/ Swelling, Increased Redness, Foul Smelling Discharge, Swelling at the incision site Call your doctor if you observe: Fever of 101 or Higher Remove Dressing in (days):: 2 Allergies/Adverse Reactions: Allergies hydrocodone [From [place]] Adverse Reaction (Verified 09/02/18 10:50) Nausea/Vom/Diarrhea Medications to take at Discharge Levothyroxine Sodium [Synthroid] 100 mcg PO DAILY 07/27/18 Cholecalciferol (Vitamin D3) [Vitamin D3] 2,000 unit PO DAILY 08/14/18 Oxycodone HCl/Acetaminophen [Percocet 5/325] 1 - 2 tab PO Q6H PRN PRN 4 Days #25 tab 09/09/18 The following prescriptions were given: Oxycodone HCl/Acetaminophen [Percocet 5/325] 1 - 2 tab PO Q6H PRN PRN 4 Days #25 tab PRN Reason: Pain Transmission Status: Received by [facility] Primary Care Physician: Lupe Kohler DO [Primary Care Provider] - Test Results: Test results from this visit will be discussed in further detail at your follow-up appointment, if applicable. Please Follow Up With: Ana Gaines MD - After 5 PM/weekends call [phone] with any concerns When: Call the office for a follow-up appointment in 2 weeks. Proposed Discharge Date: 09/09/18
[2018-09-09] MEDS: oxyCODONE 5 MG Tablet PO (15:19)
[2018-09-09] MEDS: Acetaminophen 325 MG Tablet PO (15:19)
== END 2018-09-09 15:41 | disposition home or self-care (01) ==
LOC: SDC 10:09 → AC 10:18
PROVIDERS: Anesthesiology; Family Provider Internal Medicine; PCP Internal Medicine; Referring Provider Surgery; Visit Provider Surgery
PROC: (CPT 49560; principal; 2018-09-09 11:15)
DX: K43.6 Other and unspecified ventral hernia with obstruction, without gangrene (principal); E03.9 Hypothyroidism, unspecified; K21.9 Gastro-esophageal reflux disease without esophagitis; Z79.899 Other long term (current) drug therapy
CPT/HCPCS: 49560; 49568; 81025; C1781; J7120; J2405

== ENCOUNTER 2021-02-19 06:29 | Day surgery (SDC) | payer BC, SELFPAY ==
[2021-02-19] VITALS (7 sets, daily range): BP systolic 88–135; BP diastolic 76–89; PULSE 75–89; RESP 14–20; TEMP 36.3–36.6; O2SAT 98–100; BMI 37.5
[2021-02-19 07:02] LABS: Internal QC Validated? YES +Cl - CLEAR BKGD; Pregnancy, Urine Negative Negative
[2021-02-19] MEDS: Lactated Ringers 1,000 ML 15 ML IV (07:10)
--- NOTE | 2021-02-19 07:49 | H&P.OPEN ---
HPI - General HPI Narrative DENYS RODRIGUEZ, is a 50 F who presents for screening colonoscopy due to history of colon polyps. Patient last colonoscopy was in July 2018 when she had 2 small less than 5 mm tubular adenomas one was removed piecemeal. Patient states she has bowel movements daily denies any blood. also denies any chronic abdominal pain/vomiting/reflux/heartburn. Patient denies any family history of colon cancer. PFSH Medical History (Updated 02/13/21 @ 07:53 by Natalie Dalton) Abdominal pain Acid reflux Back pain Blackout Gastric reflux History of edema Kidney stones Thyroid disease Wears glasses Home Medications cholecalciferol (vitamin D3) 5,000 unit PO DAILY 08/14/18 [History Last Taken Unknown] diphenhydramine HCl 25 mg tablet 25 mg PO Q6H PRN 10/18/20 [History Last Taken Unknown] ibuprofen 200 mg tablet 200 mg PO Q6H PRN 10/18/20 [History Last Taken Unknown] levothyroxine 112 mcg tablet 112 mcg PO DAILY tab 10/18/20 [History Last Taken Unknown] ondansetron HCl 4 mg tablet 4 mg PO Q6H PRN #3 tab 12/27/20 [Rx Last Taken Unknown] Allergy/AdvReac Type Severity Reaction Status Date / Time hydrocodone [From [place]] AdvReac Nausea/Vom/ Verified 02/19/21 06:54 Diarrhea Family History (Updated 07/29/18 @ 08:44 by Radha Lai) Mother Arthritis Hypertension High cholesterol Brother Cancer Diabetes Surgical History (Updated 10/18/20 @ 14:00 by Dionne Dumont) History of colonoscopy (~08/2018) History of excision of pilonidal cyst History of inguinal hernia repair (~08/2018) History of lithotripsy History of ventral hernia repair (09/09/18) Social History (Updated 10/18/20 @ 14:00 by Dionne Dumont) Smoking Status: Never smoker second hand exposure: No alcohol intake: current alcohol intake frequency: holidays/special occasions only substance use type: does not use caffeine: Yes what type of physical activity do you participate in: none frequency: decline to answer Past Medical/Surgical History Planned Operation Planned Operative Procedure/s: COLONOSCOPY S.O.S: No Previous Hospitalizations/Surgeries HX Hospitalizations: No HX of Surgeries: ureteral stent/ kidney stones 2011 cyst removed tailbone Any Problems With Anesthesia: Yes (nausea) You/Your Family Experience Fever (Hyperthermia) With Anes: No Cholinesterase deficiency: No Cardiovascular Hx Chest Pain within Last 2 months: No Hx of Irregular Heartbeat and/or Afib: No Hx Heart Attack: No Hx Congestive Heart Failure: No Hx Rheumatic Fever: No Hx Hypertension: No Hx Internal Defibrillator: No Hx Pacemaker: No Hx Cardiac Catheterization: No Hx Cardiac Surgery/Stents/Etc.: No Hx Stress Test: No Hx Pain in Legs when Walking/Leg Cramps: No Respiratory Chronic Cough: No HX of Shortness of Breath: No (denies) Hoarseness: No Hx Chronic Obstructive Pulmonary Disease (COPD): No Hx Asthma: No Hx Emphysema: No Hx Sleep Apnea: No (borderline per testing) Hx Respiratory Tract Infection/Cold (presently): No Do You Snore Loudly (louder than talking or can be heard): No Do You Often Feel Tired/ Fatigued/ Sleepy Dring Daytime?: No Has Anyone Observed You Stop Breathing During Sleep?: No Result (for STOP score): Negative Hx Smoking: No Smoking Status: Never smoker Gastrointestinal Hx Gastroesophageal Reflux: Yes (per hx) Controlled With Meds: No (diet controlled) Hx Gastrointestinal Disorders: Yes (blood in stool per hx) Hx Gastrointestinal Bleed: No Hx Ulcer: No Hx Hiatal Hernia: No Difficulty Chewing/Swallowing: No Special diet followed at home: No Hx Unplanned Weight Loss of 20#: No (planned wt loss) HX Unplanned Weight Gain of 20#: No Neurological Hx Seizures: No HX Syncope/Blackout Spells/Unconsciousness: Yes (fainted yrs ago) Hx Transient Ischemic Attacks (TIA): No Hx Multiple Sclerosis: No Hx Parkinson's Disease: No Hx Head/Neck Injury: No Hx Headaches: No Hx Back Injury/Pain: Yes (t5 compression fx per hx) Recent Onset of Speech Difficulty: No Restless Legs: No (not usually) Does patient have nerve stimulator: No Blood Disorder Hx Leukemia: No Bleeding Tendencies: No Hx Deep Vein Thrombosis: No Hx High Cholesterol: No Blood Transmitted Disease: No Hx Hepatitis: No Hx Cirrhosis: No Hx Anemia: No Hx Blood Disorders: No Reproduction Is Patient Lactating: No Hx Hysterectomy: No Hx Tubal Ligation: No Are You Post Menopause: No Genitourinary Hx Renal Disease: No Musculoskeletal Hx Arthritis: No Hx Rheumatoid Arthritis: No Hx Gout: No Recent Onset of an Orthopedic Problem: No Endocrine Hx Diabetes: No Thyroid Disease: Yes (on med) Hx Steroid Therapy: No Psycho/Social Hx Substance Use: No Hx Alcohol Use: No Hx Anxiety: No Hx Depression: No Mental Illness: No Hx Dementia: No Miscellaneous Hx Cancer: No Recent Exposure to Contagious Disease: No Hx of C-Diff: No Any Loose Teeth: No Allergies hydrocodone [From [place]] Adverse Reaction (Verified 02/19/21 06:54) Nausea/Vom/Diarrhea Discharge Is Pt Admitted From a Penitentiary, or a Half-Way: No After D/C, Where Do you Plan to Go: Return Home Vital Signs Vital Signs Vital Signs: 02/19/21 06:55 Temperature 97.8 F Temperature Source Temporal Pulse Rate 89 Respiratory Rate 20 H Respiratory Pattern Normal Blood Pressure 125/84 H Blood Pressure Mean 97 Blood Pressure Source Monitor Blood Pressure Position Semi-Fowlers Blood Pressure Location Left Arm Pulse Ox 98 Oxygen Delivery Method Room Air Weight Weight: 246 lb 14.684 oz Body Mass Index (BMI) 37.5 Physical Exam Const alert, oriented x3 and no apparent distress HEENT normocephalic and head/scalp atraumatic Resp normal respiratory effort Cardio regular rate GI soft to palpation and non-tender; Negative for non-distended Palpation: Negative for guarding Extremity no clubbing, cyanosis or edema Neuro CN's II-XII intact bilaterally Psych mental status grossly normal Assessment & Plan Assessment/Plan (1) Hx of colonic polyps: Procedure Criteria Type of Procedure Procedure Type: Elective Elective Risks - COVID COVID Risk Discussion: The surgeon/proceduralist and patient have discussed in detail the risk of exposure to and/or potential harm posed by the COVID-19 virus with having a surgery/procedure at this time versus the risk of delaying the surgery/procedure. It is not possible to know either the risk of delaying the surgery or procedure or chance of getting an infection with perfect accuracy, but a joint decision was made between the patient and the surgeon/proceduralist to proceed at this time with the scheduled surgery/procedure as indicated on the consent form. Surgery Risks - Colonoscopy Risks Include but are not Limited To: Risks include but are not limited to: Bleeding, perforation requiring further surgery, inability to complete colonoscopy requiring barium enema. Patient no further question this time.
--- NOTE | 2021-02-19 08:31 | OP.COLON_ITS ---
Patient Name: Kassie Silver Procedure Date: 02/19/2021 7:54 AM Date of : 1970 Age: 50 Procedure: Colonoscopy Indications: Surveillance: History of piecemeal removal adenoma on last colonoscopy (< 3 yrs) Providers: Ana Gaines MD Referring MD: Ana Gaines MD Medicines: Monitored Anesthesia Care Patient Profile: This is a 50 year old female. Last Colonoscopy: 2018. Complications: No immediate complications. Procedure: Pre-Anesthesia Assessment: - Prior to the procedure, a History and Physical was performed, and patient medications and allergies were reviewed. The patient's tolerance of previous anesthesia was also reviewed. The risks and benefits of the procedure and the sedation options and risks were discussed with the patient. All questions were answered, and informed consent was obtained. Prior Anticoagulants: The patient has taken no previous anticoagulant or antiplatelet agents. ASA Grade Assessment: Per anesthesia. After reviewing the risks and benefits, the patient was deemed in satisfactory condition to undergo the procedure. After I obtained informed consent, the scope was passed under direct vision. Throughout the procedure, the patient's blood pressure, pulse, and oxygen saturations were monitored continuously. The pediatric colonoscope was introduced through the anus and advanced to the cecum, identified by the appendiceal orifice, ileocecal valve and palpation. The colonoscopy was performed without difficulty. The patient tolerated the procedure well. The quality of the bowel preparation was good. Scope In: 8:04:02 AM Scope Withdrawal Time 0 hours 9 minutes 23 seconds Scope Out: 8:23:53 AM Total Procedure Duration Time 0 hours 19 minutes 51 seconds Findings: Hemorrhoids were found on perianal exam. A single small-mouthed diverticulum was found in the proximal descending colon. The exam was otherwise without abnormality. Impression: - Hemorrhoids found on perianal exam. - Diverticulosis in the proximal descending colon. - The examination was otherwise normal. - No specimens collected. Recommendation: - Discharge patient to home. - Resume previous diet. - Continue present medications. - Await pathology results. - Repeat colonoscopy in 10 years for screening purposes. Procedure Code(s): --- Professional --- G0105, PT, Colorectal cancer screening; colonoscopy on individual at high risk Diagnosis Code(s): --- Professional --- Z86.010, Personal history of colonic polyps K64.9, Unspecified hemorrhoids K57.30, Diverticulosis of large intestine without perforation or abscess without bleeding CPT copyright 2017 [employer]. All rights reserved. The codes documented in this report are preliminary and upon care coordination manager review may be revised to meet current compliance requirements. MD Ana Malik MD 02/19/2021 8:31:15 AM This report has been signed electronically. Number of Addenda: 0 Note Initiated On: 02/19/2021 7:54 AM
--- NOTE | 2021-02-19 08:32 | OP.CCLET_ITS ---
02/19/2021 Lupe Kohler [address] [place] [address] Re : Colonoscopy procedure for Kassie Silver Dear Dr. Kohler This procedure was performed on Friday, February 19, 2021. My impressions and recommendations are as follows: Impressions : - Hemorrhoids found on perianal exam. - Diverticulosis in the proximal descending colon. - The examination was otherwise normal. - No specimens collected. Recommendations : - Discharge patient to home. - Resume previous diet. - Continue present medications. - Await pathology results. - Repeat colonoscopy in 10 years for screening purposes. My findings are described in the full procedure note, which is enclosed. If I can be of further assistance, please feel free to contact me at Doctor phone number(s): , Work: . Sincerely, MD Ana Malik MD 02/19/2021 8:31:15 AM This report has been signed electronically.
== END 2021-02-19 09:03 | disposition home or self-care (01) ==
LOC: EN 06:36 → AC 06:40
PROVIDERS: Anesthesiology; PCP Internal Medicine; Referring Provider Surgery; Visit Provider Surgery
PROC: 0DJD8ZZ Inspection of Lower Intestinal Tract, Via Natural or Artificial Opening Endoscopic (ICD-10-PCS; CPT 45378; principal; 2021-02-19 07:55)
DX: Z12.11 Encounter for screening for malignant neoplasm of colon (principal); Z86.010 Personal history of colon polyps; K57.30 Diverticulosis of large intestine without perforation or abscess without bleeding; K64.9 Unspecified hemorrhoids; K21.9 Gastro-esophageal reflux disease without esophagitis; E07.9 Disorder of thyroid, unspecified; Z87.442 Personal history of urinary calculi; Z79.899 Other long term (current) drug therapy
CPT/HCPCS: 45378; 81025; 87426; C9803; J7120

== ENCOUNTER 2023-07-17 09:33 | Emergency (ER) | payer BC, SELFPAY ==
[2023-07-17 09:34] VITALS: BP 152/104; BP 157/88; PULSE 83; PULSE 88; RESP 16; RESP 18; TEMP 36.1; O2SAT 98; O2SAT 99; BMI 38.5
[2023-07-17 10:33] LABS: Color, Urine Yellow (Yellow); Glucose, Dipstick Normal (Normal); Ketone-Dipstick Negative (Negative); Leukocyte Esterase-Dipstick 25 /ul (Negative); Nitrite-Dipstick Negative (Negative); Occult Blood-Urine 250 /ul (Negative); Protein-Dipstick 30 mg/dl (Negative); Specific Gravity, Urine 1.025 (1.002-1.030); Urine Bilirubin Dipstick 1 mg/dL (Negative); Urine Clarity Sl. Cloudy (Clear); Urine Urobilinogen Normal (Normal)
--- NOTE | 2023-07-17 10:33 | CT_ITS ---
STUDY: CT ABDOMEN AND PELVIS WITHOUT CONTRAST REASON FOR EXAM: Female, 52 years old. Kidney Stone. Intermittent right flank pain for one week. RADIATION DOSAGE (If Supplied By Facility): CTDIvol = ( 23.41 ) mGy, DLP = ( 1322.00 ) mGycm TECHNIQUE: Transaxial images were obtained from the dome of the diaphragm to the symphysis pubis without oral contrast, and without intravenous contrast. Sagittal and coronal images were reconstructed. Individualized dose optimization techniques were used for this CT. COMPARISON: None. FINDINGS: The visualized lung bases are unremarkable. The visualized portions of the heart are within normal limits. Normal liver. Findings suggestive of gallstones in the gallbladder lumen. Normal spleen. Normal pancreas. Normal bilateral adrenal glands. There is a 3 mm nonobstructive catheters in the upper pole calyx of the right kidney. Mild to moderate degree of right hydronephrosis and right hydroureter due to a 5.9 mm calculus in the proximal portion of the right ureter. Nonobstructive 5 mm calculus in the anterior upper pole calyx of the left kidney. Normal visualized stomach. Normal small intestine. Normal colon. The appendix is visualized and appears normal. Nonspecific mild increased markings within the mesenteric fat at the root of the mesentery. Normal abdominal aorta. Normal inferior vena cava. There is small retroperitoneal lymphadenopathy with enlarged nodes no greater than 10mm in the short axis diameter. Normal urinary bladder. Normal abdominal wall. Stable mild loss of height of the superior endplate of the L1 vertebrae. CT/Abdomen/Pelvis without Cont IMPRESSION: 5.9 mm calculus in the proximal portion of the right ureter causing right hydronephrosis and right hydroureter. Small bilateral nonobstructive intrarenal calculi. Questionable small gallstones. Nonspecific increased markings in the mesenteric fat of the root of the mesentery. Electronically Signed: Jayden Betancourt MD at 11:17 EDT ,
[2023-07-17 10:34] LABS: Absolute Lymphocyte Count 1.16 X10^3/uL (0.83-4.51); Absolute Neutrophil Count 7.6 X10^3/uL (2.0-7.7); Basophil# 0.03 X10^3/uL; Basophil% 0.3 % (0-1); Hematocrit 41.8 % (37-47); Hemoglobin 13.9 g/dL (12.0-15.0); Lymphocyte # 1.16 X10^3/ul (0.83-4.51); Lymphocyte % 11.9 % (19-41); Mean Corp Hgb Conc 33.3 g/dL (32-36); Mean Corpuscular Hgb 29.3 pg (27.0-32.0); Mean Corpuscular Volume 88.2 fL (81-99); Mean Platelet Vol. 10.3 fl (6.2-12.0); Monocyte# 0.75 X10^3/uL; Monocyte% 7.7 % (0-10); NRBC Flagged by Analyzer 0 % (0-5); Neutrophil # 7.63 X10^3/uL (2.7-7.7); Neutrophil % 78.7 % (47-70); Platelet Count 232 K/mm3 (150-450); RBC Distribution Width CV 12.8 % (11.6-14.6); RBC Distribution Width SD 41.2 fl (35.1-43.9); Red Blood Count 4.74 M/mm3 (4.2-5.4); White Blood Count 9.7 K/mm3 (4.4-11.0)
[2023-07-17 10:40] LABS: Red Blood Cells-Urine 25-50 SEEN /hpf (0-5); Squamous Epithelial Cells - UA 0-5 SEEN /hpf (5-10); White Blood Cells 0-5 SEEN /hpf (0-5)
[2023-07-17 10:41] LABS: Bacteria 1+ /hpf (None Seen); Mucous, Urine RARE /hpf (<or=2+)
[2023-07-17 10:42] LABS: Internal QC Validated? YES +Cl - CLEAR BKGD; Pregnancy, Serum, hCG Quali. NEGATIVE Negative
[2023-07-17 10:49] LABS: Anion Gap 7 (5-15); BUN 16 mg/dL (7-18); BUN/Creat Ratio 14.2 RATIO (10-20); Calcium,Total 9.1 mg/dL (8.5-10.1); Chloride 107 mmol/L (98-107); Creatinine, Serum 1.13 mg/dL (0.55-1.02); EST Glomerular Filtration Rate 54 mL/min (>60); Est Glom Filt Rate - Afr Amer 65 mL/min (>60); Glucose 107 mg/dL (74-106); Potassium 3.8 mmol/L (3.5-5.1); Sodium Level 140 mmol/L (136-145)
[2023-07-17 11:11] VITALS: BP 122/91; PULSE 75; RESP 16; TEMP 36.8; O2SAT 97
--- NOTE | 2023-07-17 11:13 | EDS_ITS ---
HPI History of Present Illness Chief Complaint: Flank Pain Informant: patient Narrative Narrative: 52-year-old female presenting to the emergency room with a chief complaint of flank pain. Patient states that a month ago she underwent a yearly CT scan which showed a 4 mm stone in her ureter on the right. She states that she followed up with her doctor who referred her to urology and she is to have a CT scan with contrast done tomorrow. She states that the pain seems to have moved not only in the right flank but now into the right pelvis. She states she is she did not drink a lot of water last night so her urine seems a bit darker than normal. No reported fevers noted change in bowel or bladder function. No known renal disease. She has had prior kidney stones and did require lithotripsy with stent placement. [facility] Medical History Abdominal pain Acid reflux Back pain Blackout Gastric reflux History of edema Kidney stones Sebaceous cyst Thyroid disease Wears glasses Home Medications diphenhydramine HCl 25 mg tablet (Benadryl Allergy) 25 mg PO Q6H PRN Sleep 10/18/20 [History Last Taken Unknown] ibuprofen 200 mg tablet 200 mg PO Q6H PRN Pain 10/18/20 [History Last Taken Unknown] levothyroxine 112 mcg tablet 112 mcg PO DAILY 10/18/20 [History Last Taken U nknown] ondansetron 4 mg disintegrating tablet 4 mg PO Q6H PRN PRN Nausea #15 tabs 07/17/23 [Rx Last Taken Unknown] oxycodone-acetaminophen 5 mg-325 mg tablet 1 tab PO Q6H PRN PRN Pain 3 days #12 TABLETS 07/17/23 [Rx Last Taken Unknown] tamsulosin 0.4 mg capsule 0.4 mg PO BID 07/17/23 [History Last Taken Unknown] Allergy/AdvReac Type Severity Reaction Status Date / Time hydrocodone [From [place]] AdvReac Nausea/Vom/ Verified 07/17/23 09:34 Diarrhea Family History Mother Arthritis Hypertension High cholesterol Brother Cancer Diabetes Surgical History History of colonoscopy (~08/2018) History of excision of pilonidal cyst History of inguinal hernia repair (~08/2018) History of lithotripsy History of ventral hernia repair (09/09/18) Social History Smoking Status: Never smoker second hand exposure: No alcohol intake: current alcohol intake frequency: holidays/special occasions only substance use type: does not use caffeine: Yes what type of physical activity do you participate in: none frequency: decline to answer ROS ROS ED Constitutional Constitutional ED: Denies chills, fever(s) or weight loss Eyes Eyes: Denies change in vision or diplopia ENT ENT ED: Denies ear pain, rhinorrhea or sore throat Cardiovascular Cardiovascular: Denies chest pain, orthopnea, palpitations or racing heartbeat Respiratory/Chest Respiratory/Chest: Denies cough, dyspnea or orthopnea Gastrointestinal Gastrointestinal: Reports abdominal pain and nausea; Denies diarrhea or vomiting Genitourinary Genitourinary ED: Denies dysuria, hematuria or urinary frequency Musculoskeletal Musculoskeletal: Reports back pain; Denies arthralgias or myalgias Integumentary Denies abscess or rash Neurologic Neurologic: Denies headache(s) or weakness Psychiatric Psychiatric: Denies anxiety, depression, suicidal ideation or suicidal thoughts Endocrine Endocrinology: Denies polydipsia, polyphagia or polyuria Allergic/Immunologic Allergic/Immunologic ED: Denies mouth swelling, tongue swelling or urticaria EXAM Physical Exam Const Vital Signs: 07/17/23 09:34 07/17/23 09:34 07/17/23 11:11 Temperature 97 F L 98.2 F Temperature Source Temporal Oral Pulse Rate 88 83 75 Respiratory Rate 18 16 16 Blood Pressure 152/104 H 157/88 H 122/91 H Blood Pressure Mean 120 111 101 Pulse Ox 99 98 97 Oxygen Delivery Method Room Air Room Air Positive well nourished, well developed and obese General Appearance ED: well developed Nutritional Appearance: obese HEENT Reports normocephalic, head/scalp atraumatic and moist mucous membranes Eyes PERRL and EOMs intact bilaterally Neck no lymphadenopathy, supple and no JVD Resp normal respiratory effort and clear to auscultation bilaterally Cardio regular rate, regular rhythm and no murmurs GI normal to inspection, nondistended, normoactive bowel sounds and non-tender Palpation: soft Back/Spine no CVA tenderness and normal ROM Extremity normal to inspection General Extremety ED: Negative for edema General Extremity: Negative for edema Neuro oriented x3 and CN's II-XII intact bilaterally Sensorium / Orientation: alert Motor Exam: strength 5/5 throughout Psych mental status grossly normal Mood & Affect: Negative for depressed or tearful Skin no rashes or lesions noted and no wounds MDM MDM MDM Narrative Medical decision making narrative: Differential diagnosis includes but not limited to acute renal failure sepsis kidney stone appendicitis colitis White count 9.7 hemoglobin 13.9 and platelet count 232. Creatinine 1.13 with a BUN of 16 CO2 of 26 anion gap of 7 potassium 3.8. Urinalysis was obtained which demonstrates 25-50 red cells 0-5 white cells 1+ bacteria 0-[address] Negative nitrates[address] CT of the abdomen pelvis demonstrates a proximal ureteral stone measuring about 5.9 mm with some associated hydronephrosis and hydro ureter. Please see radiology read for full details. Patient has not required any pain medication since she has been here. I spoke with Dr. Murcia who the patient was referred to to help arrange follow-up. I will write for some oxycodone as well as Zofran for symptomatic control at home. Patient to return if worsening or concerns. Patient is comfortable with the plan. History & Record Review Discussion w/independent historian: Patient Lab Data Attestation: I reviewed the patient's lab results. Labs: Laboratory Results - last 24 hr 07/17/23 10:17 WBC 9.7 RBC 4.74 Hgb 13.9 Hct 41.8 MCV 88.2 MCH 29.3 MCHC 33.3 RDW Std Deviation 41.2 RDW Coeff of Isiah 12.8 Plt Count 232 MPV 10.3 Immature Gran % (Auto) 0.400 Neut % (Auto) 78.7 H Lymph % (Auto) 11.9 L [place] % (Auto) 7.7 Eos % (Auto) 1.0 Baso % (Auto) 0.3 Absolute Neuts (auto) 7.6 Absolute Lymphs (auto) 1.16 Nucleated RBC % 0 Sodium 140 Potassium 3.8 Chloride 107 Carbon Dioxide 26.0 Anion Gap 7 BUN 16 Creatinine 1.13 H Estim Creat Clear Calc 79.30 Est GFR (MDRD) Af Amer 65 Est GFR (MDRD) Non-Af 54 L BUN/Creatinine Ratio 14.2 Glucose 107 H Calcium 9.1 Serum , Qual NEGATIVE Urine Color Yellow Urine Clarity Sl. Cloudy Urine pH 6.0 Ur Specific [place] 1.025 Urine Protein 30 H Urine Glucose (UA) Normal Urine Ketones Negative Urine Occult Blood 250 H Urine Nitrite Negative Urine Bilirubin 1 H Urine Urobilinogen Normal Ur Leukocyte Esterase 25 H Urine RBC 25-50 SEEN Urine WBC 0-5 SEEN Ur Squamous Epith Cells 0-5 SEEN Urine Bacteria 1+ Urine Mucus RARE Radiography Diagnostic Testing: Clinical Impression(s) from Imaging Studies Abdomen/Pelvis CT 07/17/23 10:33 IMPRESSION: 5.9 mm calculus in the proximal portion of the right ureter causing right hydronephrosis and right hydroureter. Small bilateral nonobstructive intrarenal calculi. Questionable small gallstones. Nonspecific increased markings in the mesenteric fat of the root of the mesentery. Electronically Signed: Jayden Betancourt MD at 11:17 EDT Reading Location ID and State: [facility] / [place] , Service support , Discharge Plan Triage Chief Complaint: Flank Pain ED Provider: Bonifacio Menjivar Dx/Rx/DC Orders Clinical Impression: Ureterolithiasis, Abdominal pain Instructions: ED Kidney Stone with Pain Prescriptions: New oxycodone-acetaminophen [oxycodone-acetaminophen] 5-325 mg tablet 1 tab PO Q6H PRN PRN (Reason: Pain) 3 Days Qty: 12 0RF ondansetron [ondansetron] 4 mg tablet,disintegrating 4 mg PO Q6H PRN PRN (Reason: Nausea) Qty: 15 0RF No Action levothyroxine 112 mcg tablet 112 mcg PO DAILY Patient Comments: TAKE 1 TABLET BY MOUTH ONCE DAILY ON AN EMPTY STOMACH diphenhydramine HCl [Benadryl Allergy] 25 mg tablet 25 mg PO Q6H PRN (Reason: Sleep) ibuprofen 200 mg tablet 200 mg PO Q6H PRN (Reason: Pain) tamsulosin 0.4 mg capsule 0.4 mg PO BID Primary Care Provider: Lupe Kohler Referrals: iSerra Murcia MD [Med Staff - Active Staff] - As soon as possible Lupe Kohler DO [Primary Care Provider] - Disposition Disposition: Home, Self Care
== END 2023-07-17 12:20 | disposition home or self-care (01) ==
PROVIDERS: Emergency Provider Emergency Medicine; PCP Internal Medicine; Visit Provider Emergency Medicine
DX: R10.9 Unspecified abdominal pain (principal); N13.2 Hydronephrosis with renal and ureteral calculous obstruction
CPT/HCPCS: 74176; 80048; 81001; 84703; 85025; 99284; A4216

== ENCOUNTER → 2023-07-18 | Outpatient (CLI) | payer BC, SELFPAY ==
--- NOTE | 2023-07-18 16:07 | CT_ITS ---
EXAM: CT ABDOMEN AND PELVIS WITH INTRAVENOUS CONTRAST CLINICAL INDICATION: ABNORMAL CT OF THE ABDOMEN TECHNIQUE: Helically acquired images were obtained of the abdomen and pelvis with intravenous contrast. This CT exam was performed using one or more of the following dose reduction techniques: automated exposure control, adjustment of the mA and/or kV according to patient size, and/or use of iterative reconstruction technique. CONTRAST: IV 100mL [id number] COMPARISON: 07/17/2023 FINDINGS: LOWER THORAX: Unremarkable. Lung bases are clear. No cardiomegaly. No significant pericardial effusion. ABDOMEN: LIVER: Unremarkable. Homogeneous. No focal mass. GALLBLADDER AND BILE DUCTS: Unremarkable. No calcified gallstones. No gallbladder distention or wall edema. No intra- or extrahepatic biliary ductal dilation. PANCREAS: Unremarkable. No focal cystic or solid mass. SPLEEN: Unremarkable. Normal size without focal cystic or solid mass. ADRENALS: Unremarkable. No nodules. KIDNEYS AND URETERS: There is right-sided hydronephrosis and hydroureter. There is a 7 mm stone in the proximal to mid right ureter. There is a second stone that measures 6 mm in the distal right ureter. Nonobstructing calyceal stones in both kidneys. Normal renal size and position. STOMACH AND BOWEL: Unremarkable. No stomach or bowel distention. No focal inflammatory change. PELVIS: APPENDIX: No evidence of acute appendicitis. BLADDER: Unremarkable. REPRODUCTIVE: Unremarkable as visualized. No mass. ABDOMEN and PELVIS: INTRAPERITONEAL SPACE: Unremarkable. No ascites or other fluid collection. No free air. BONES/JOINTS: Unremarkable. No suspicious lytic or blastic abnormality. SOFT TISSUES: Unremarkable. No discrete abdominal or pelvic wall hernia. VASCULATURE: Unremarkable. Abdominal aorta is non-dilated. LYMPH NODES: Unremarkable. No enlarged lymph nodes. CT/Abdomen/Pelvis WITH Contrast IMPRESSION: Obstruction right collecting system due to a 7 mm stone in the proximal to mid ureter as well as a second stone that measures 6 mm in the distal right ureter. Electronically Signed: Florentino Pedersen MD at 23:45 EDT ,
== END | disposition home or self-care (01) ==
LOC: CT 16:04
PROVIDERS: PCP Internal Medicine; Referring Provider Internal Medicine; Visit Provider Internal Medicine
DX: R93.5 Abnormal findings on diagnostic imaging of other abdominal regions, including retroperitoneum (principal)
CPT/HCPCS: 74177; Q9967

== ENCOUNTER → 2023-07-28 | Outpatient (CLI) | payer BC, SELFPAY ==
--- NOTE | 2023-07-28 15:53 | RAD_ITS ---
EXAM: XR ABDOMEN, 1 VIEW CLINICAL INDICATION: STONES TECHNIQUE: Frontal supine view of the abdomen/pelvis. COMPARISON: No relevant prior studies available. FINDINGS: LOWER THORAX: No acute pathology. GASTROINTESTINAL TRACT: Unremarkable. Non-obstructive. No bowel or stomach distention. ORGANS: There is a calcification overlying the left kidney. There is also a calcification to the right of the L4 transverse process which may be within the right ureter. No organomegaly. BONES/JOINTS: No acute pathology. SOFT TISSUES: No acute pathology. RAD/Abdomen Single View IMPRESSION: Calcification in the right midabdomen medially which may be within the right ureter. There is nonobstructing left calyceal stone. Electronically Signed: Florentino Pedersen MD at 0:12 EDT ,
== END | disposition home or self-care (01) ==
PROVIDERS: PCP Internal Medicine; Referring Provider Urology; Visit Provider Urology
DX: N20.0 Calculus of kidney (principal)
CPT/HCPCS: 74018

== ENCOUNTER → 2023-08-22 | Outpatient (CLI) | payer BC, SELFPAY ==
--- NOTE | 2023-08-22 16:02 | CT_ITS ---
HISTORY: BILATERAL STONES/BILATERAL HYDRONEPHROSIS. TECHNIQUE: Helically acquired images were obtained of the abdomen and pelvis without oral or IV contrast. A radiation dose optimization technique was used for this scan. 540 images. COMPARISON: 07/18/2023. FINDINGS: LOWER CHEST: Lung bases clear. BOWEL: Bowel including appendix nondilated. No periappendiceal inflammation. 4 mm metallic object in the rectum. No focal pericolonic inflammatory change. PERITONEUM: No free fluid or significant free fluid. Chronic mild stranding of the mid mesentery with small lymph nodes, suggesting mesenteric panniculitis. LIVER: Unremarkable. GALLBLADDER/BILIARY TREE: Gallbladder present. SPLEEN/PANCREAS: Nonenlarged. KIDNEYS AND URETERS: 3 mm right upper pole calculus. Mild right hydronephrosis and hydroureter down to the level of a 7 mm proximal to mid ureteral calculus, again at the upper L4 level. Interval passage of 6 mm right distal ureteral calculus. 2 mm left upper and 4 mm interpolar calculi without hydronephrosis. ADRENAL GLANDS: No nodules. VESSELS: No abdominal aortic aneurysm. PELVIC ORGANS: Unremarkable. BONES: Chronic mild L1 compression fracture. CT/Abdomen/Pelvis without Cont IMPRESSION: Mild right hydronephrosis secondary to a 7 mm proximal-mid ureteral calculus, similar position of prior. Interval passage of 6 mm right distal ureteral calculus. Bilateral nephrolithiasis. No left hydronephrosis. Small metallic foreign body in the rectum without perforation or surrounding inflammation. Electronically Signed: Rasheeda Reid MD at 11:10 EDT ,
== END | disposition home or self-care (01) ==
PROVIDERS: PCP Internal Medicine; Referring Provider Urology; Visit Provider Urology
DX: N20.0 Calculus of kidney (principal); N13.30 Unspecified hydronephrosis
CPT/HCPCS: 74176

== ENCOUNTER 2023-09-11 07:33 | Day surgery (SDC) | payer BC, SELFPAY ==
[2023-09-11] VITALS (9 sets, daily range): BP systolic 96–166; BP diastolic 59–103; PULSE 51–82; RESP 16–18; TEMP 36.1–36.8; O2SAT 95–100; BMI 39.4
--- NOTE | 2023-09-11 | CALC_PTH ---
PATIENT: DENYS RODRIGUEZ LOC: [facility] [place] U#:[id number] AGE/SX: 52/F ROOM: RE09/11/[address]: Dr. Sierra Murcia MD : 1970 BED: DIS: 09/11/2023 SPEC #: [id number] RECD: 09/11/23 12:18 STATUS: ANN MARIENerissa #: [id number] MANDI: 09/11/23 00:[address]: Sierra Murcia DEPT: SURGICAL PATHOLOGY RECD BY: Lester Rebollar ENTERED: 09/11/23 12:18 SP TYPE: Calculi OTHR DR: Dr. Lupe Kohler, Tissues: CALCULI Procedures: Surgery Specimen Level I HEADER OPERATION: Cystoscopy, right ureteroscopy, laser lithotripsy, stone basket PRE-OP DIAGNOSIS: Calculus of kidney and ureter, urgency of micturition, abdominal pain TISSUE SUBMITTED: Calculi, urinary with photo GROSS DIAGNOSIS Renal calculi, removal: Fragments of unremarkable calculi (gross diagnosis only). AM/ 09/12/2023 COMMENT If chemical analysis is requested on this specimen, please notify the laboratory. Specimen photograph has been obtained. GROSS DESCRIPTION Received without fixative labeled with the patient's name and designated ureteral calculi. The specimen consists of a multiple irregular fragments of nieto stone measuring in aggregate 0.6 x 0.1 x 0.1cm. The entire specimen is submitted for stone analysis. The entire specimen is saved if stone analysis is requested. CPT: 75307
--- NOTE | 2023-09-11 07:58 | PCM.PRE.AN2 ---
ASA Classification* ASA Classification ASA Classification: 3 Assessment & Plan Anesthesia* Anesthesia Assessment Anesthesia Assessment: Discussed sedation and/or anesthesia options, risks, benefits, and alternatives with patient/parents/legal guardian/POA. Questions invited. The patient/parents/legal guardian/POA seems to understand and agrees to proceed with anesthesia plan. Reviewed the physical assessment, medical history, allergy history and patient home medications list prior to surgery/procedure/anesthetic and documented any changes. Performed airway and anesthesia risk assessments. 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 When Was Last Pacemaker Check QUESTION #4 FULL TEXT: You/Your Family Experience fever (hyperthermia) with Anesthesia Last Oral Intake Last Oral intake: Last Oral Intake NPO since Meds taken in AM with sips of water? Meds patient instructed to take am of surgery PONV PONV - internet sales director: PONV - internet sales director Female Yes 09/03/23 08:58 HX of Motion Sickness No 09/03/23 08:58 HX of N/V After Surgery Yes 09/03/23 08:58 Non-Smoker Yes 09/03/23 08:58 Duration of Surgery greater Yes 09/03/23 08:58 than 60 minutes Number of Risk Factors 4 09/03/23 08:58 PONV Score Severe Risk 09/03/23 08:58 Height & Weight Height & Weight: Anesthesia: Height & Weight Height 5 ft 8 in 07/17/23 09:34 Respiratory Assessment Respiratory Assessment - internet sales director: Respiratory Tract Infection Hx - internet sales director Hx Respiratory Tract Infection No 09/03/23 08:58 STOP Sleep Apnea STOP Sleep Apnea - internet sales director: STOP Sleep Apnea - internet sales director Hx Hypertension No 09/03/23 08:58 Hx Sleep Apnea No 09/03/23 08:58 CPAP BIPAP Do you snore loudly (louder No 09/03/23 08:58 than talking or can be heard Do you often feel tired/ Yes 09/03/23 08:58 fatigued/ sleepy during daytime? Has anyone observed you stop No 09/03/23 08:58 breathing during sleep? STOP Results Negative 09/03/23 08:58 QUESTION #5 FULL TEXT : Do you snore loudly (louder than talking or can be heard through closed doors)? 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 Specify any problems Hx of Preganancy in last 3 No 09/03/23 08:58 Months Nurse Filling Out Transfusion DSCHRIBER 09/03/23 08:58 & Questions: Date: 09/03/23 09/03/23 08:58 Time: 08:59 09/03/23 08:58 Patient unable to answer at this time (ie. confused, unrespo /Reproduction History /Reproductive History - internet sales director: /Reproductive Hx- internet sales director Hx Now No 09/03/23 08:58 Gestational Age (in weeks): EDC: Hx Hx Para Hx Section SAB No 09/03/23 08:58 Active Medications Active Medications: Current Medications Generic Name Dose Route Start Last Admin Trade Name Freq PRN Reason Stop Dose Admin Cefazolin Sodium 2 gm/ Sodium 110 mls @ 150 mls/hr 09/11/23 09:20 Chloride IV 09/11/23 10:03 PREOP ONE Lactated Ringer's 1,000 mls @ 15 mls/hr 09/11/23 08:00 IV .Q48H WEST Anesthesia Focused Assessment* Airway Assessment Mouth opens: >3 cm Mallampati Score: III Focused Labs Anesthesia Preop lab: CBC WBC 9.7 K/mm3 (4.4-11.0) 07/17/23 10:17 RBC 4.74 M/mm3 (4.2-5.4) 07/17/23 10:17 Hgb 13.9 g/dL (12.0-15.0) 07/17/23 10:17 Hct 41.8 % (37-47) 07/17/23 10:17 Plt Count 232 K/mm3 (150-450) 07/17/23 10:17 CHEMISTRY Potassium 3.8 mmol/L (3.5-5.1) 07/17/23 10:17 Sodium 140 mmol/L (136-145) 07/17/23 10:17 BUN 16 mg/dL (7-18) 07/17/23 10:17 Creatinine 1.13 mg/dL (0.55-1.02) H 07/17/23 10:17 Glucose 107 mg/dL (74-106) H 07/17/23 10:17 COAG Urine Test Negative Negative 02/19/21 06:45 Review of Systems (Anesthesia) ROS Narrative System reviewed and no additional complaints, except as documented. COUNTS INCLUDE 234 BEDS AT THE [facility] Medical History (Updated 09/03/23 @ 09:02 by Jennifer Tunrer) Alcohol use Sebaceous cyst Wears glasses Back pain Thyroid disease Home Medications ?Medication ?Instructions ?Recorded ?Last Taken ?Type diphenhydramine HCl 25 mg tablet 25 mg PO Q6H PRN Sleep 10/18/20 Unknown History (Benadryl Allergy) ibuprofen 200 mg tablet 200 mg PO Q6H PRN Pain 10/18/20 Unknown History levothyroxine 112 mcg tablet 112 mcg PO DAILY 10/18/20 Unknown History ondansetron 4 mg disintegrating 4 mg PO Q6H PRN PRN Nausea #15 tabs 07/17/23 Unknown Rx tablet Allergy/AdvReac Type Severity Reaction Status Date / Time hydrocodone (From Protem) AdvReac Nausea/Vom/ Verified 09/03/23 08:55 Diarrhea Family History Mother Arthritis Hypertension High cholesterol Brother Cancer Diabetes Surgical History (Updated 09/03/23 @ 09:02 by Jennifer Turner) History of colonoscopy (~08/2018) History of ventral hernia repair (09/09/18) History of inguinal hernia repair (~08/2018) History of excision of pilonidal cyst History of lithotripsy Social History Smoking Status: Never smoker second hand exposure: No alcohol intake: current alcohol intake frequency: holidays/special occasions only substance use type: does not use caffeine: Yes what type of physical activity do you participate in: none frequency: decline to answer
[2023-09-11 08:10] LABS: Internal QC Validated? YES +Cl - CLEAR BKGD; Record Kit Lot#,Urine Preg 772476
[2023-09-11 08:12] LABS: Pregnancy, Urine Negative Negative
[2023-09-11] MEDS: Lactated Ringers 1,000 ML 15 ML IV (08:21)
[2023-09-11] MEDS: Cefazolin 2 GM in 0.9% Normal Saline (100mL Bag) 100 ML IV (10:17)
--- NOTE | 2023-09-11 11:10 | PCM.POST.ANE ---
Anesthesia: Postop Eval I Current Vital Signs Temperature: 97.3 F Pulse Rate: 82 Blood Pressure: 166/101 Respiratory Rate: 18 Pulse Ox: 100 Oxygen Delivery Method: Room Air Assessment Airway patent: Yes Spontaneous unlabored respirations: Yes Mental status: Awake and Calm nausea: No Vomiting: No Anesthesia Complication: No Fluid Hydration Crystalloid volume administer (ml): 400 Total IV fluid infused: 400 Progress Note Anesthesia document: Postop Eval 1 completed: Yes
--- NOTE | 2023-09-11 11:16 | EX.PCM.DISCH ---
Discharge Instructions Diet Discharge Diet: No restrictions Activity Discharge Activity: Return to Normal Activity Dressing / Incision Call your doctor if you observe: Fever of 101 or Higher, Inability to urinate and Inability to have a bowel movement Additional Dressing/Incision Instructions:: Remove the right ureteral stent on Friday morning by pulling slowly with steady tension on the string that is attached to the right inner thigh by Steri-Strips Follow Up Care Please Follow Up With: Sierra Murcia MD When: The office will call the patient to make follow-up arrangements in 3-4 weeks Test Results: Test results from this visit will be discussed in further detail at your follow-up appointment, if applicable. Discharge Plan Admission Attending Provider: Sierra Murcia Primary Care Provider: Lupe Kohler Instructions Print Language: Tanzanian Discharge Orders/Prescriptions Prescriptions: New oxycodone-acetaminophen [Percocet] 5-325 mg tablet 1 tab PO Q8H PRN (Reason: pain) 3 Days Qty: 10 0RF cephalexin 500 mg capsule 500 mg PO Q12 3 Days Qty: 6 0RF phenazopyridine [Pyridium] 200 mg tablet 200 mg PO TID PRN PRN (Reason: Bladder Spasms) 7 Days Qty: 30 0RF Continued levothyroxine 112 mcg tablet 112 mcg PO DAILY Patient Comments: TAKE 1 TABLET BY MOUTH ONCE DAILY ON AN EMPTY STOMACH diphenhydramine HCl [Benadryl Allergy] 25 mg tablet 25 mg PO Q6H PRN (Reason: Sleep) ibuprofen 200 mg tablet 200 mg PO Q6H PRN (Reason: Pain) ondansetron 4 mg tablet,disintegrating 4 mg PO Q6H PRN PRN (Reason: Nausea) Qty: 15 0RF Referrals / Follow Up: Lupe Kohler DO [Primary Care Provider] - Disposition Disposition (needs filled in before D/C Order can be placed): Home, Self Care
--- NOTE | 2023-09-11 11:19 | OP.PCM_ITS ---
Report of Operation Date of Procedure: 09/11/23 Pre-Operative Diagnosis: Right ureteral calculus Post-Operative Diagnosis: Same Surgery/Procedure Performed:: Cystoscopy, right ureteroscopy, laser lithotripsy, stone basket extraction, right ureteral stent insertion Surgeon: Sierra Murcia Type of Anesthesia: General Specimen's removed: Stone fragments Description of Procedure: The patient is a 52-year-old female with a right ureteral calculus lodged in the ureter remaining on repeat CT scan. She presents for surgical intervention. Informed consent was obtained. The patient was taken to the operating room and placed on the operating room table. Anesthesia monitored the head, neck, airway, IV access and vital signs throughout the case. Once anesthesia was flori ropriately administered, the patient was placed into dorsolithotomy position and was prepped and draped in usual sterile fashion. The cystoscope was inserted through the urethra under direct visualization. The bladder was found to be within normal limits. The right ureteral orifice was identified and intubated with a 0.035 Glidewire which was advanced and visible on fluoroscopy within the renal pelvis. Using the semirigid ureteroscope, the ureter was once again intubated and the scope advanced without difficulty to the level of the proximal ureteral calculus. It was approximately 7 to 8 mm in size. It was broken into multiple small fragments using the 200 ?m laser fiber. The large fragments were removed using a stone basket and the dust was irrigated. When the ureter was free from stone fragments, a 4.5 Montenegrin 28 cm JJ stent was placed over the wire with good positioning in the renal pelvis as well as the urinary bladder. The string was left attached to the stent and was secured to the right inner thigh using Cavilon and Steri-Strips. The bladder was emptied and the cystoscope was removed. The patient was awakened and taken to the recovery room in good condition. There were no complications during this procedure. Grafts/Implants Used: 4.5 Montenegrin by 28 cm JJ stent Complications None Admit VTE Documentation VTE Present on Admission: Yes VTE Mechan Device Prophylaxis: SCD's VTE Pharm Prophylaxis ordered?: No Reason prophylaxis not ordered:: Treatment Not Indicated
--- NOTE | 2023-09-11 13:18 | POSTOPAN2_ITS ---
Anesthesia Postop Eval I Sum Postop Eval Completion status Anesthesia document: Postop Eval 1 completed: Yes Anesthesia Postop Eval I Summary Anesthesia Postop Eval I Summary: Anesthesia Postop Eval I: Assessment Summary Airway patent Yes 09/11/23 11:10 WORK [email or web address].[email or web address] Spontaneous unlabored Yes 09/11/23 11:10 WORK DISTRIBUTOR.MDOT respirations Mental status Awake,Calm 09/11/23 11:10 WORK DISTRIBUTOR.MDOT nausea No 09/11/23 11:10 WORK DISTRIBUTOR.MDOT Vomiting No 09/11/23 11:10 WORK [email or web address].MDOT Anesthesia Postop Eval I: Fluid Summary Crystalloid volume administer 400 09/11/23 11:10 WORK DISTRIBUTOR.MDOT (ml) Colloids volume administered ( ml) Blood Product volume administered (ml) Total IV fluid infused 400 09/11/23 11:10 WORK DISTRIBUTOR.MDOT Anesthesia Postop Eval I: Summary Notes Anesthesia Complication No 09/11/23 11:10 WORK [email or web address].MDOT Anesthesia Complication Comment: Post-operative progress note Anesthesia: Postop Eval II Evaluation Mental status: Awake Pain Level: 0 nausea: No Vomiting: No Complications Anesthesia Complication: No
--- NOTE | 2023-09-11 13:18 | PCM.POSTANE2 ---
Anesthesia Postop Eval I Sum Postop Eval Completion status Anesthesia document: Postop Eval 1 completed: Yes Anesthesia Postop Eval I Summary Anesthesia Postop Eval I Summary: Anesthesia Postop Eval I: Assessment Summary Airway patent Yes 09/11/23 11:10 SORTER OPERATOR.MDOT Spontaneous unlabored Yes 09/11/23 11:10 SORTER OPERATOR.MDOT respirations Mental status Awake,Calm 09/11/23 11:10 SORTER OPERATOR.MDOT nausea No 09/11/23 11:10 SORTER OPERATOR.MDOT Vomiting No 09/11/23 11:10 SORTER OPERATOR.MDOT Anesthesia Postop Eval I: Fluid Summary Crystalloid volume administer 400 09/11/23 11:10 SORTER OPERATOR.MDOT (ml) Colloids volume administered ( ml) Blood Product volume administered (ml) Total IV fluid infused 400 09/11/23 11:10 SORTER OPERATOR.MDOT Anesthesia Postop Eval I: Summary Notes Anesthesia Complication No 09/11/23 11:10 SORTER OPERATOR.MDOT Anesthesia Complication Comment: Post-operative progress note Anesthesia: Postop Eval II Evaluation Mental status: Awake Pain Level: 0 nausea: No Vomiting: No Complications Anesthesia Complication: No
[2023-09-24 20:04] LABS: Source Not Provided
== END 2023-09-11 12:38 | disposition home or self-care (01) ==
LOC: SDC 07:41 → AC 07:41
PROVIDERS: Anesthesiology; PCP Internal Medicine; Referring Provider Urology; Visit Provider Urology
PROC: 0TJ98ZZ Inspection of Ureter, Via Natural or Artificial Opening Endoscopic (ICD-10-PCS; CPT 52352; principal; 2023-09-11 09:10)
DX: N20.1 Calculus of ureter (principal); R39.15 Urgency of urination; E07.9 Disorder of thyroid, unspecified; Z79.899 Other long term (current) drug therapy
CPT/HCPCS: 52356; 00873; 76000; 81025; 82360; 88300; J2405

== ENCOUNTER → 2024-03-23 | Outpatient (CLI) | payer BC, SELFPAY ==
--- NOTE | 2024-03-23 09:12 | RAD_ITS ---
STUDY: X-RAY - ABDOMEN/PELVIS REASON FOR EXAM: Female, 53 years old. KUB- HYPERCALCIURIA TECHNIQUE: Single AP view of the abdomen / pelvis. COMPARISON: 07/28/2023 FINDINGS: Normal visualized lung bases. There is an unremarkable bowel gas pattern. 4 mm calcific opacity overlying the left kidney suggestive of a left renal stone. No definite ureteral stone. Normal soft tissue structures. Normal visualized osseous structures. RAD/Abdomen Single View IMPRESSION: Suspect 4 mm left renal stone. No definite ureteral stone. Electronically Signed: Rene Faustin MD at 21:57 EST ,
[2024-03-23 12:51] LABS: Calcium,Total 9.5 mg/dL (8.5-10.1)
== END | disposition home or self-care (01) ==
LOC: MTRAD 09:09 → MTLAB 09:10
PROVIDERS: PCP Internal Medicine; Referring Provider Urology; Visit Provider Urology
DX: R82.994 Hypercalciuria (principal)
CPT/HCPCS: 36415; 74018; 82310

== ENCOUNTER → 2024-05-17 | Outpatient (CLI) | payer BC, SELFPAY ==
[2024-05-17 12:49] LABS: Mean Corp Hgb Conc 32.5 g/dL (32-36); Mean Corpuscular Hgb 29.7 pg (27.0-32.0); Mean Corpuscular Volume 91.3 fL (81-99); Mean Platelet Vol. 11.5 fl (6.2-12.0); Platelet Count 258 K/mm3 (150-450); RBC Distribution Width CV 12.6 % (11.6-14.6); RBC Distribution Width SD 41.7 fl (35.1-43.9); Red Blood Count 4.38 M/mm3 (4.2-5.4); White Blood Count 6.9 K/mm3 (4.4-11.0)
[2024-05-17 20:18] LABS: Anion Gap 4 (5-15); BUN 17 mg/dL (7-18); BUN/Creat Ratio 21.2 RATIO (10-20); Calcium,Total 9.2 mg/dL (8.5-10.1); Chloride 108 mmol/L (98-107); EST Glomerular Filtration Rate 80 mL/min (>60); Est Glom Filt Rate - Afr Amer 97 mL/min (>60); Glucose 88 mg/dL (74-106); Sodium Level 141 mmol/L (136-145)
== END | disposition home or self-care (01) ==
LOC: MTLAB 10:08
PROVIDERS: PCP Internal Medicine; Referring Provider Urology; Visit Provider Urology
DX: N20.1 Calculus of ureter (principal)
CPT/HCPCS: 36415; 80048; 85027

== ENCOUNTER 2024-05-27 10:49 | Day surgery (SDC) | payer BC, SELFPAY ==
[2024-05-27] VITALS (11 sets, daily range): BP systolic 136–154; BP diastolic 82–102; PULSE 63–93; RESP 16–18; TEMP 36.3–37; O2SAT 93–100; BMI 40.7
[2024-05-27 11:18] LABS: Internal QC Validated? YES +Cl - CLEAR BKGD; Pregnancy, Urine Negative Negative
[2024-05-27] MEDS: 0.9% Normal Saline (1000mL) 1,000 ML 15 ML IV (11:22)
--- NOTE | 2024-05-27 11:44 | PCM.OPRPT ---
Operative Report (Standard) Operative Information Date of Procedure: 05/27/24 Pre-Operative Diagnosis: Left renal stone Post-Operative Diagnosis: Same Surgery/Procedure Performed: Left renal extracorporeal shockwave lithotripsy hydropulper: No Type of Anesthesia: General RN Documented Start/Stop Times: Operation Date: 05/27/24 12:25 Case Time Into Pre-Op 05/27/24 11:04 Out of Pre-Op 05/27/24 12:29 Anesthesia Start 05/27/24 12:33 Into Room 05/27/24 12:33 Procedure Start 05/27/24 12:47 Procedure Start Time: 12:47 Procedure Stop Time: 13:23 Select all DRAINS/GRAFTS/IMPLANTS that apply: None Estimated Blood Loss: <5cc Specimen collected: No Description of surgery: The patient is a 53-year-old female with left renal stone who presents for shockwave lithotripsy. Informed consent was obtained. She was taken to the operating room and placed on the operating room table. Anesthesia monitored the head, neck, airway, IV access and vital signs throughout the case. Once anesthesia was appropriately administered she was positioned with the lithotripter and the stone was easily visualized. 3000 shocks were applied and the stone appeared to be well fragmented at the conclusion of the case. She was awakened and taken to the recovery room in good condition. There were no complications during this procedure. Surgical Findings: Left renal stones seen, 3000 shocks applied and it appeared to be well fragmented Complications Complications: No Admit VTE Documentation VTE Present on Admission: Yes VTE Mechan Device Prophylaxis: SCD's VTE Pharm Prophylaxis ordered?: No Reason prophylaxis not ordered: Treatment Not Indicated
--- NOTE | 2024-05-27 11:46 | EX.PCM.DISCH ---
Discharge Instructions Diet Discharge Diet: No restrictions Activity Discharge Activity: Return to Normal Activity Dressing / Incision Call your doctor if you observe: Fever of 101 or Higher, Inability to urinate and Inability to have a bowel movement Follow Up Care Please Follow Up With: Sierra Murcia MD When: In the office in 2 to 3 weeks with a KUB. Test Results: Test results from this visit will be discussed in further detail at your follow-up appointment, if applicable. Discharge Plan Admission Attending Provider: Sierra Murcia Primary Care Provider: Lupe Kohler Instructions Print Language: Upper Sorbian Discharge Orders/Prescriptions Prescriptions: New ondansetron 8 mg tablet,disintegrating 8 mg PO Q8H PRN (Reason: nausea and vomiting) Qty: 10 0RF oxycodone-acetaminophen 5-325 mg tablet 1 tab PO Q8H PRN (Reason: pain) 3 Days Qty: 10 0RF cephalexin 500 mg capsule 500 mg PO Q12 3 Days Qty: 6 0RF Continued levothyroxine 112 mcg tablet 112 mcg PO DAILY Patient Comments: TAKE 1 TABLET BY MOUTH ONCE DAILY ON AN EMPTY STOMACH diphenhydramine HCl [Benadryl Allergy] 25 mg tablet 25 mg PO Q6H PRN (Reason: Sleep) ibuprofen 200 mg tablet 200 mg PO Q6H PRN (Reason: Pain) Referrals / Follow Up: Lupe Kohler DO [Primary Care Provider] - Disposition Disposition (needs filled in before D/C Order can be placed): Home, Self Care
--- NOTE | 2024-05-27 11:55 | PRE.ANES_ITS ---
ASA Classification* ASA Classification ASA Classification: 3 Assessment & Plan Anesthesia* Anesthesia Assessment Anesthesia Assessment: Discussed sedation and/or anesthesia options, risks, benefits, and alternatives with patient/parents/legal guardian/POA. Questions invited. The patient/parents/legal guardian/POA seems to understand and agrees to proceed with anesthesia plan. Reviewed the physical assessment, medical history, allergy history and patient home medications list prior to surgery/procedure/anesthetic and documented any changes. Performed airway and anesthesia risk assessments. Anesthesia Type Anesthesia Type: General History Source History Obtained from:: Patient and Chart Anesthesia Focused Assessment* Temperature: 98.3 F Pulse Rate: 84 Blood Pressure: 145/102 Respiratory Rate: 16 Pulse Ox: 96 Oxygen Delivery Method: Room Air Airway Assessment Mouth opens: >3 cm Mallampati Score: II Teeth Condition: Caps/Crowns (Patient has a couple Crowns. They are tight.) and Missing (Patient has a couple of missing teeth. Rest of the teeth are tight.) Neck Range of motion (ROM): Limited ROM (Somewhat decreased extension) Focused Labs Anesthesia Preop lab: CBC WBC 6.9 K/mm3 (4.4-11.0) 05/17/24 10:05/17/24 RBC 4.38 M/mm3 (4.2-5.4) 05/17/24 10:05/17/24 Hgb 13.0 g/dL (12.0-15.0) 05/17/24 10:25 05/17/24 Hct 40.0 % (37-47) 05/17/24 10:05/17/24 Plt Count 258 K/mm3 (150-450) 05/17/24 10:25 05/17/24 CHEMISTRY Potassium 4.0 mmol/L (3.5-5.1) 05/17/24 10:25 05/17/24 Sodium 141 mmol/L (136-145) 05/17/24 10:05/17/24 BUN 17 mg/dL (7-18) 05/17/24 10:25 05/17/24 Creatinine 0.80 mg/dL (0.55-1.02) 05/17/24 10:05/17/24 Glucose 88 mg/dL (74-106) 05/17/24 10:25 05/17/24 COAG Urine Test Negative Negative 05/27/24 11:05 05/27/24 Pre-Assessment Diagnosis/Proposed Procedure Planned Operative Procedure(s): LEFT ESWL Anesthesia History 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 DID WELL WITH 05/17/24 09:57 2023 ANESTHESIA Cholinesterase deficiency No 05/17/24 09:57 You/Your Family Experience No 05/17/24 09:57 fever (hyperthermia) with Relationship Recent Exposure to Contagious No 05/27/24 11:23 Disease Does patient have nerve No 05/17/24 09:57 stimulator Patient instructed to have device shut off --Does patient have Pacemaker No 05/27/24 11:23 or ICD? When Was Last Pacemaker Check QUESTION #4 FULL TEXT: You/Your Family Experience fever (hyperthermia) with Anesthesia Last Oral Intake Last Oral intake: Last Oral Intake NPO since 00:00 05/27/24 11:23 Meds taken in AM with sips of No 05/27/24 11:23 water? Meds patient instructed to take am of surgery PONV PONV - box sealing inspector: PONV - box sealing inspector Female Yes 05/17/24 09:57 HX of Motion Sickness No 05/17/24 09:57 HX of N/V After Surgery Yes 05/17/24 09:57 Non-Smoker Yes 05/17/24 09:57 Duration of Surgery greater Yes 05/17/24 09:57 than 60 minutes Number of Risk Factors 4 05/17/24 09:57 PONV Score Severe Risk 05/17/24 09:57 Height & Weight Height & Weight: Anesthesia: Height & Weight Height 5 ft 7 in 05/27/24 11:23 Weight: 118 kg 05/27/24 11:23 Body Mass Index (BMI) 40.7 05/27/24 11:23 Respiratory Assessment Respiratory Assessment - box sealing inspector: Respiratory Tract Infection Hx - box sealing inspector Hx Respiratory Tract Infection No 05/17/24 09:57 STOP Sleep Apnea STOP Sleep Apnea - box sealing inspector: STOP Sleep Apnea - box sealing inspector Hx Hypertension No 05/17/24 09:57 Hx Sleep Apnea No 05/17/24 09:57 CPAP BIPAP Do you snore loudly (louder No 05/17/24 09:57 than talking or can be heard Do you often feel tired/ No 05/17/24 09:57 fatigued/ sleepy during daytime? Has anyone observed you stop No 05/17/24 09:57 breathing during sleep? STOP Results Negative 05/17/24 09:57 QUESTION #5 FULL TEXT : Do you snore loudly (louder than talking or can be heard through closed doors)? 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 Specify any problems Hx of Preganancy in last 3 No 05/17/24 09:57 Months Nurse Filling Out Transfusion DSCHRIBER 05/17/24 09:57 & Questions: Date: 05/17/24 05/17/24 09:57 Time: 09:58 05/17/24 09:57 Patient unable to answer at this time (ie. confused, unrespo /Reproduction History /Reproductive History - box sealing inspector: /Reproductive Hx- box sealing inspector Hx Now No 05/17/24 09:57 Gestational Age (in weeks): EDC: Hx Hx Para Hx Section SAB No 05/17/24 09:57 Active Medications Active Medications: Current Medications Generic Name Dose Route Start Last Admin Trade Name Freq PRN Reason Stop Dose Admin Cefazolin Sodium 2 gm/ N/A 20 mls @ 400 mls/hr 05/27/24 12:25 IV 05/27/24 12:27 PREOP ONE Sodium Chloride 1,000 mls @ 15 mls/hr 05/27/24 11:10 05/27/24 11:22 IV 06/02/24 00:29 15 mls/hr .Q48H WEST Administration Protocol PFSH Medical History Kidney stone History of edema Ureteral calculus Alcohol use Sebaceous cyst Wears glasses Back pain Thyroid disease Home Medications ?Medication ?Instructions ?Recorded ?Last Taken ?Type diphenhydramine HCl 25 mg tablet 25 mg PO Q6H PRN Slee p 10/18/20 Unknown History (Benadryl Allergy) ibuprofen 200 mg tablet 200 mg PO Q6H PRN Pain 10/18 Unknown History levothyroxine 112 mcg tablet 112 mcg PO DAILY 10/18/20 05/25/24 History cephalexin 500 mg capsule 500 mg PO Q12 post-operative 3 05/27/24 Unknown Rx days #6 CAPSULES ondansetron 8 mg disintegrating 8 mg PO Q8H PRN nausea and 05/27/24 Unknown Rx tablet vomiting #10 tabs oxycodone-acetaminophen 5 mg-325 1 tab PO Q8H PRN pain 3 days #10 05/27/24 Unknown Rx mg tablet tabs Allergy/AdvReac Type Severity Reaction Status Date / Time hydrocodone (From [place]) AdvReac Nausea/Vom/ Verified 05/27/24 11:21 Diarrhea Family History Mother Arthritis Hypertension High cholesterol Brother Cancer Diabetes Surgical History History of cystoscopy History of colonoscopy (~08/2018) History of ventral hernia repair (09/09/18) History of inguinal hernia repair (~08/2018) History of excision of pilonidal cyst History of lithotripsy Social History Smoking Status: Never smoker second hand exposure: No alcohol intake: current alcohol intake frequency: holidays/special occasions only substance use type: does not use caffeine: Yes what type of physical activity do you participate in: none frequency: decline to answer Review of Systems (Anesthesia) ROS Narrative System reviewed and no additional complaints, except as documented.
[2024-05-27] MEDS: Cefazolin 2 GM in Syringe IV (12:37)
--- NOTE | 2024-05-27 13:52 | PCM.POST.ANE ---
Anesthesia: Postop Eval I Current Vital Signs Temperature: 98.6 F Pulse Rate: 84 Blood Pressure: 153/93 Respiratory Rate: 18 Pulse Ox: 100 Oxygen Delivery Method: Room Air Assessment Airway patent: Yes Spontaneous unlabored respirations: Yes Mental status: Awake and Calm nausea: No Vomiting: No Anesthesia Complication: No Fluid Hydration Crystalloid volume administer (ml): 700 Total IV fluid infused: 700 Progress Note Anesthesia document: Postop Eval 1 completed: Yes
--- NOTE | 2024-05-27 18:28 | POSTOPAN2_ITS ---
Anesthesia Postop Eval I Sum Postop Eval Completion status Anesthesia document: Postop Eval 1 completed: Yes Anesthesia Postop Eval I Summary Anesthesia Postop Eval I Summary: Anesthesia Postop Eval I: Assessment Summary Airway patent Yes 05/27/24 13:53 ATTIC FANS [email or web address] Spontaneous unlabored Yes 05/27/24 13:53 ATTIC FANS [email or web address].CASSANDRA respirations Mental status Awake,Calm 05/27/24 13:53 ATTIC FANS MECHANIC.NIRMALOBVaughn nausea No 05/27/24 13:53 ATTIC FANS MECHANIC.NIRMALOBVaughn Vomiting No 05/27/24 13:53 ATTIC FANS MECHANIC.NIRMALOBVaughn Anesthesia Postop Eval I: Fluid Summary Crystalloid volume administer 700 05/27/24 13:53 ATTIC FANS MECHANIC.NIRMALOBY (ml) Colloids volume administered ( ml) Blood Product volume administered (ml) Total IV fluid infused 700 05/27/24 13:53 ATTIC FANS MECHANIC.CASSANDRA Anesthesia Postop Eval I: Summary Notes Anesthesia Complication No 05/27/24 13:53 ATTIC FANS [email or web address].[email or web address] Anesthesia Complication Comment: Post-operative progress note Anesthesia: Postop Eval II Evaluation Mental status: Awake and Calm Pain Level: 2 nausea: No Vomiting: No Complications Anesthesia Complication: No
--- NOTE | 2024-05-27 18:28 | PCM.POSTANE2 ---
Anesthesia Postop Eval I Sum Postop Eval Completion status Anesthesia document: Postop Eval 1 completed: Yes Anesthesia Postop Eval I Summary Anesthesia Postop Eval I Summary: Anesthesia Postop Eval I: Assessment Summary Airway patent Yes 05/27/24 13:53 ARRT [email or web address].[email or web address] Spontaneous unlabored Yes 05/27/24 13:53 ARRT TECHNOLOGIST.CASSANDAR respirations Mental status Awake,Calm 05/27/24 13:53 ARRT TECHNOLOGIST.NIRMALOBVaughn nausea No 05/27/24 13:53 ARRT TECHNOLOGIST.NIRMALOBVaughn Vomiting No 05/27/24 13:53 ARRT TECHNOLOGIST.NIRMALOBVaughn Anesthesia Postop Eval I: Fluid Summary Crystalloid volume administer 700 05/27/24 13:53 ARRT TECHNOLOGIST.NIRMALOBY (ml) Colloids volume administered ( ml) Blood Product volume administered (ml) Total IV fluid infused 700 05/27/24 13:53 ARRT TECHNOLOGIST.CASSANDRA Anesthesia Postop Eval I: Summary Notes Anesthesia Complication No 05/27/24 13:53 ARRT TECHNOLOGIST.CASSANDRA Anesthesia Complication Comment: Post-operative progress note Anesthesia: Postop Eval II Evaluation Mental status: Awake and Calm Pain Level: 2 nausea: No Vomiting: No Complications Anesthesia Complication: No
== END 2024-05-27 15:15 | disposition home or self-care (01) ==
LOC: SDC 10:55 → AC 10:58
PROVIDERS: PCP Internal Medicine; Referring Provider Urology; Visit Provider Urology
PROC: (CPT 50590; principal; 2024-05-27 12:15)
DX: N20.0 Calculus of kidney (principal)
CPT/HCPCS: 50590; 00873; 81025; J2405

== ENCOUNTER → 2024-06-23 | Outpatient (CLI) | payer BC, SELFPAY ==
--- NOTE | 2024-06-23 15:35 | RAD_ITS ---
EXAM: XR Abdomen, 1 View CLINICAL INDICATION: KUB- KIDNEY STONES TECHNIQUE: Frontal supine view of the abdomen/pelvis. COMPARISON: No relevant prior studies available. FINDINGS: GASTROINTESTINAL TRACT: Fecal retention in the colon consistent with constipation. No dilation. ORGANS: Bilateral renal pelvic calculi, largest measuring up to 5 mm on the left. BONES/JOINTS: Unremarkable. No acute fracture. RAD/Abdomen Single View IMPRESSION: 1. Bilateral renal pelvic calculi, largest measuring up to 5 mm on the left. 2. Fecal retention in the colon consistent with constipation. Reading [facility] [place]
== END | disposition home or self-care (01) ==
LOC: MTRAD 15:34
PROVIDERS: PCP Internal Medicine; Referring Provider Urology; Visit Provider Urology
DX: N20.0 Calculus of kidney (principal)
CPT/HCPCS: 74018